=== PATIENT | male | born 1950 | race Hispanic/Latino ===

== ENCOUNTER 2018-06-30 13:24 | Inpatient (IN) | payer BC, MEDICARE ==
[~2018-06-30] VITALS: Ht 167.6 cm; Wt 70.8 kg
[2018-06-30] VITALS (24 sets, daily range): BP systolic 86–121; BP diastolic 51–85
[2018-06-30] MEDS ORDERED: MORPHINE SULFATE 5 MG/ML VIAL IV ONE (13:45)
[2018-06-30] MEDS ORDERED: ASPIRIN 81 MG ENTERIC COATED PO ONE (14:15)
[2018-06-30] MEDS ORDERED: HEPARIN SOD (PORCINE) 5,000 UNIT/ML VIAL IV ONE ×3 (14:15→19:00)
--- NOTE | 2018-06-30 14:17 | NUR ---
HEPARIN VERIFIED WITH DUNIA ELLIS
[2018-06-30 14:28] LABS: BASOPHILS % 0.1 % (0.0-1.0); HEMATOCRIT 43.3 % (38.2-49.6); HEMOGLOBIN 15.3 g/dL (14.0-18.0); LYMPHOCYTES # (AUTO) 0.8 (1.0-3.2); LYMPHOCYTES % 4.9 % (18.0-39.1); MEAN CORPUSCULAR HEMOGLOBIN 30.5 pg (28-32); MEAN CORPUSCULAR HGB CONC 35.3 g/dL (31-35); MEAN CORPUSCULAR VOLUME 86.3 fL (81-99); MONOCYTES # (AUTO) 1.1 (0.2-0.8); MONOCYTES % 6.9 % (4.4-11.3); NEUTROPHILS # (AUTO) 13.5 (2.1-6.9); NEUTROPHILS % 87.6 % (38.7-80.0); PLATELET COUNT 286 x10e3/uL (140-360); RED BLOOD COUNT 5.02 x10e6/uL (4.3-5.7); RED CELL DISTRIBUTION WIDTH 12.2 % (11.7-14.4)
[2018-06-30] MEDS ORDERED: HEPARIN SOD (PORCINE) 1000 UNIT/ML 30ML ONE (14:33)
[2018-06-30] MEDS ORDERED: NITROGLYCERIN 400 MCG/SPRAY 4.9 GM BTL ONE (14:33)
[2018-06-30] MEDS ORDERED: ATROPINE SULFATE 0.1 MG/ML 10ML SYR ONE ×2 (14:34→19:41)
[2018-06-30] MEDS ORDERED: IOPAMIDOL 370 MG/ML 200 ML INFUS..BTL INJ ONE ×2 (14:34→15:20)
[2018-06-30] MEDS ORDERED: LIDOCAINE HCL 1% LOCAL INJ 20 ML VIAL ONE (14:34)
[2018-06-30] MEDS ORDERED: HEPARIN SOD/SOD CHLORIDE 2,000 ML ONE (14:34)
[2018-06-30] MEDS ORDERED: SODIUM CHLORIDE 0.9% 1000ML 1,000 ML ONE ×2 (14:34→21:07)
[2018-06-30] MEDS ORDERED: BIVALRIUDIN 250 MG/VIAL VIAL IV ONE (14:35)
[2018-06-30] MEDS ORDERED: MIDAZOLAM HCL 2 MG/2 ML VIAL ONE ×2 (14:35→15:46)
[2018-06-30] MEDS ORDERED: SODIUM CHLORIDE 0.9% 50ML 0 ML ONE (14:36)
[2018-06-30] MEDS ORDERED: FENTANYL CITRATE/PF 100MCG/2 ML INJ ONE (14:36)
[2018-06-30 14:43] LABS: ALANINE AMINOTRANSFERASE 42 IU/L (0-55); ALBUMIN 3.9 g/dL (3.5-5.0); ALBUMIN/GLOBULIN RATIO 0.8 (0.8-2.0); ALKALINE PHOSPHATASE 115 IU/L (40-150); ANION GAP 25.2 mmol/L (8-16); BLOOD UREA NITROGEN 17 mg/dL (7-26); BUN/CREATININE RATIO 14 (6-25); CALCIUM 9.7 mg/dL (8.4-10.2); CARBON DIOXIDE 18 mmol/L (22-29); CHLORIDE 91 mmol/L (98-107); CREATININE, SERUM 1.18 mg/dL (0.72-1.25); EST GLOMERULAR FILTRATION RATE > 60 ML/MIN (60-); POTASSIUM 4.2 mmol/L (3.5-5.1); SODIUM 130 mmol/L (136-145)
--- NOTE | 2018-06-30 14:45 | NUR ---
REPORTED TO BRANDT ELLIS IN ENTRY LEVEL MECHANICAL ENGINEER THAT PATIENT GLUCOSE IS 421 AND PT/PTT NEEDS TO BE DRAWN
[2018-06-30 14:49] LABS: GLUCOSE 421 mg/dL (74-118)
--- NOTE | 2018-06-30 14:52 | Diagnostic Imaging Report ---
A single frontal view of the chest. HISTORY: Chest pain COMPARISON: None available. DISCUSSION: Portable technique, limits sensitivity of the exam. Overlying monitoring leads. Tubes/Lines: None Lungs and pleura: Mild left greater than right atelectasis. Trace blunting of the left costophrenic angle, pleural thickening versus trace pleural fluid. No evidence of a consolidative pneumonia or pulmonary alveolar edema. Heart and mediastinum: The cardiomediastinal silhouette appears unremarkable. Bones and soft tissues: Healed left clavicle fracture deformity. IMPRESSION: 1. Mild left greater than right atelectasis. 2. Trace left pleural effusion versus pleural thickening. Signed by: Dr. Suman Thomas D.O., M.M.M. on 06/30/2018 2:49 PM
[2018-06-30] MEDS ORDERED: ASPIRIN 325 MG TAB EC PO ONE (15:00)
[2018-06-30] MEDS ORDERED: HEPARIN SOD (PORCINE) 1000 UNIT/ML SDV IV ONE (15:00)
[2018-06-30] MEDS ORDERED: EPTIFIBATIDE 10 ML ONE (15:12)
[2018-06-30] MEDS ORDERED: EPTIFIBATIDE ONE (15:12)
[2018-06-30] MEDS ORDERED: SODIUM CHLORIDE 0.9% 500ML 0 ML ONE (15:29)
[2018-06-30] MEDS ORDERED: ADENOSINE 3MG/1ML 30ML VIAL ONE (15:33)
[2018-06-30] MEDS ORDERED: SODIUM CHLORIDE 0.9% 500ML 500 ML ONE (15:34)
[2018-06-30] MEDS ORDERED: SODIUM CHLORIDE 0.9% 250ML 250 ML ONE (15:35)
[2018-06-30] MEDS ORDERED: ADENOSINE 6MG/2ML 1 ML ONE (15:35)
[2018-06-30] MEDS ORDERED: SODIUM CHLORIDE 0.9% 1000ML 1,000 ML IV SCH ×2 (16:05→16:30)
[2018-06-30] MEDS ORDERED: HYDRALAZINE HCL 20 MG/ML VIAL IV PRN (16:15)
[2018-06-30] MEDS ORDERED: INSULIN DETEMIR 100 UNIT/ML PEN SQ PRN (16:15)
[2018-06-30] MEDS ORDERED: ZOLPIDEM TARTRATE 5 MG TAB PO PRN (16:15)
[2018-06-30] MEDS ORDERED: MAGNESIUM SULF 1GRAM/DEXTROSE 100 ML IV PRN (16:15)
[2018-06-30] MEDS ORDERED: NITROGLYCERIN 0.4 MG SUBL SL PRN (16:15)
[2018-06-30] MEDS ORDERED: ASPIRIN 81 MG CHEW TAB PO ONE (16:15)
[2018-06-30] MEDS ORDERED: POTASSIUM CHLORIDE 20MEQ/100ML 200 ML IV PRN (16:15)
[2018-06-30] MEDS ORDERED: TICAGRELOR 90 MG TABLET ONE (16:16)
--- NOTE | 2018-06-30 16:54 | History and Physical ---
HISTORY OF PRESENT ILLNESS: Mr. Guzmán is a 67-year-old gentleman who is not taking any medications, does not see a physician. He was seen in the freestanding emergency room of [facility] with chest pain for several hours' duration. His EKG shows inferior ST elevation. His troponin is 18.6. Blood sugars are 421 and an anion gap of 25. PAST MEDICAL HISTORY: As listed above. SOCIAL HISTORY: Patient does not smoke or drink. MEDICATIONS: Reviewed. ALLERGIES: NO KNOWN DRUG ALLERGIES. REVIEW OF SYSTEMS: Negative except as dictated in the history of present illness. PHYSICAL EXAMINATION VITAL SIGNS: Afebrile. Heart rate 74, blood pressure 149/69, O2 sat is 98%. CARDIOVASCULAR: Regular rhythm. S3 gallop. Systolic murmur. RESPIRATORY: Clear to auscultation bilaterally. ABDOMEN: Soft. EXTREMITIES: Pedal pulses are trace positive. Electrocardiogram shows sinus rhythm with inferior ST elevation. LABS: Reviewed and are described above. ASSESSMENT 1. Acute inferior ST elevation myocardial infarction. 2. Diabetic ketoacidosis. RECOMMENDATIONS: Urgent intervention and coronary angiography will be performed. This was discussed with the patient. He is agreeable for the same. He has already received aspirin and heparin for anticoagulation. Endocrinology consultation for diabetic ketoacidosis. Critical care, ICU, and close outpatient followup will be needed. Job#: [id number] TAO
[2018-06-30] MEDS ORDERED: METOPROLOL SUCCINATE 50 MG TAB XL PO ONE (17:00)
[2018-06-30] MEDS ORDERED: INSULIN REGULAR, HUMAN 3ML VL 100 UNIT in SODIUM CHLORIDE 0.9% 99 ML IV SCH ×4 (17:00→18:30)
[2018-06-30] MEDS: TICAGRELOR 90 MG TABLET PO SCH (17:00)
[2018-06-30] MEDS ORDERED: LISINOPRIL 10 MG TAB PO ONE (17:00)
[2018-06-30] MEDS ORDERED: EPTIFIBATIDE 2 MG/1 ML 10ML VIAL IV ONE (17:00)
--- OUTSIDE RECORDS SUMMARY | 2018-06-30 17:38 | XMS REPORT ---
Author Author [facility] Address Unknown Phone Unavailable Care Team Providers Care Vascular Surgeon Name Role Phone Jojo WILSON Unavailable Unavailable Problems This patient has no known problems. Allergies, Adverse Reactions, Alerts This patient has no known allergies or adverse reactions. Medications This patient has no known medications. Results Test Description Test Time Test Comments Text Results Atomic Results Result Comments CXR 1 [facility] 2018-06-30 14:46:00 [place] [address] Patient Name: DEEP MCLAUGHLIN MR #: [id number] : 1950 Age/Sex: 67/M Req #: [id number] Adm Physician: Ordered by: PRISCA WILSON MD Report #: [id number] Location: [facility] Room/Bed: Procedure: [id number] HOPD/CXR 1 [facility] Exam Date: 06/30/18 Exam Time: 1415 REPORT STATUS: Signed A single frontal view of the chest. HISTORY: Chest pain COMPARISON: None available. DISCUSSION: Portable technique, limits sensitivity of the exam. Overlying monitoring leads. Tubes/Lines: None Lungs and pleura: Mild left greater than right atelectasis. Trace blunting of the left costophrenic angle, pleural thickening versus trace pleural fluid. No evidence of a consolidative pneumonia or pulmonary alveolar edema. Heart and mediastinum: The cardiomediastinal silhouette appears unremarkable. Bones and soft tissues: Healed left clavicle fracture deformity. IMPRESSION: 1. Mild left greater than right atelectasis. 2. Trace left pleural effusion versus pleural thickening. Signed by: Dr. Saulo Thomas D.O., M.M.M. on 06/30/2018 2:49 PM Dictated By: SAULO THOMAS DO 1449 Transcribed By: AGUILA on 06/30/18 1449 COPY TO: PRISCA WILSON MD
[2018-06-30] MEDS ORDERED: DEXTROSE 50% SYRINGE 50 ML IV PRN (17:45)
[2018-06-30] MEDS ORDERED: HEPARIN 25,000U/0.45% NS 250ML 250 ML ONE (17:51)
--- NOTE | 2018-06-30 18:02 | Operative Report ---
DATE OF PROCEDURE: June 30, 2018 INDICATIONS: ST-elevation myocardial infarction. PROCEDURES PERFORMED 1. Left heart catheterization, selective coronary angiography. 2. Percutaneous transluminal coronary angioplasty and drug-eluting stent placement in the proximal and mid right coronary artery. 3. Deployment of right groin intra-aortic balloon pump. COMPLICATIONS: None. RECOMMENDATIONS: Counter pulsation is followed by medical therapy and staged intervention on the circumflex and obtuse marginal arteries. Access obtained in the right femoral artery. A 6-Burkinan sheath was placed. Diagnostic coronary angiogram revealed completely occluded right coronary artery with thrombus. After reperfusion, the right posterolateral distal right coronary artery and posterior descending artery had 70% to 80% bifurcating lesions, 1.5 mm vessel, left main 50%, left anterior descending artery 50%, circumflex and obtuse marginal branch bifurcating 95% stenosis. A decision was made to intervene on the right coronary artery. The patient received intravenous heparin, Integrilin, oral Brilinta as well as aspirin for anticoagulation. The right coronary artery was cannulated using a JR4 6-Burkinan guiding catheter. Short Runthrough wire was advanced across the lesion for support. Thrombectomy was performed pre-dilatation of 2.5 mm balloon following which 2 overlapping 3.5 x 38 and 3.5 x 18 mm Resolute Manas drug-eluting stents were deployed. Excellent end result. Adenosine and nitroglycerin copious amounts administered. Excellent flow JOHN-3. No complications. Intra-aortic balloon pump 34 mL was introduced. Counterpulsations initiated. Patient was transferred to ICU in stable condition. Job#: [id number] SHIN
[2018-06-30 18:27] LABS: INR 1.17; PROTHROMBIN TIME 15.9 seconds (11.9-14.5)
[2018-06-30 18:28] LABS: PARTIAL THROMBOPLASTIN TIME 56.6 seconds (23.8-35.5)
[2018-06-30 18:32] LABS: ANION GAP 22.2 mmol/L (8-16); BLOOD UREA NITROGEN 17 mg/dL (7-26); BUN/CREATININE RATIO 18 (6-25); CARBON DIOXIDE 19 mmol/L (22-29); CHLORIDE 94 mmol/L (98-107); CREATINE KINASE 148 IU/L (30-200); CREATININE, SERUM 0.97 mg/dL (0.72-1.25); EST GLOMERULAR FILTRATION RATE > 60 ML/MIN (60-); GLUCOSE 367 mg/dL (74-118); MAGNESIUM 2.3 MG/DL (1.3-2.1); POTASSIUM 4.2 mmol/L (3.5-5.1); SODIUM 131 mmol/L (136-145)
[2018-06-30] MEDS: DEXTROSE 5%/0.45% SOD CHL 1,000 ML IV SCH (18:59)
[2018-06-30] MEDS ORDERED: ATROPINE SULFATE 1 MG/ML VIAL IV ONE ×2 (20:30→21:30)
[2018-06-30] MEDS ORDERED: SODIUM CHLORIDE 0.9% 1000ML 1,000 ML IV ONE (21:00)
[2018-06-30] MEDS: ATORVASTATIN 40 MG TAB PO SCH (21:15)
[2018-06-30 21:24] LABS: ANION GAP 15.7 mmol/L (8-16); BLOOD UREA NITROGEN 18 mg/dL (7-26); BUN/CREATININE RATIO 20 (6-25); CALCIUM 8.2 mg/dL (8.4-10.2); CARBON DIOXIDE 20 mmol/L (22-29); CHLORIDE 95 mmol/L (98-107); CREATININE, SERUM 0.89 mg/dL (0.72-1.25); EST GLOMERULAR FILTRATION RATE > 60 ML/MIN (60-); MAGNESIUM 2.1 MG/DL (1.3-2.1); POTASSIUM 3.7 mmol/L (3.5-5.1); SODIUM 127 mmol/L (136-145)
[2018-06-30 21:25] LABS: GLUCOSE 483 mg/dL (74-118)
--- NOTE | 2018-06-30 21:25 | NUR ---
Dr. Ruby rounded at the bedside and updated on patient's status.
[2018-06-30] MEDS ORDERED: EPTIFIBATIDE 100 ML ONE (22:52)
[2018-06-30] MEDS: EPTIFIBATIDE 100 ML IV SCH (23:00)
[2018-06-30] MEDS: MORPHINE SULFATE INJ 4 MG/ML INJ IV PRN (23:30)
[2018-07-01] VITALS (93 sets, daily range): BP systolic 86–144; BP diastolic 52–91
[2018-07-01] MEDS: DEXTROSE 5%/0.45% SOD CHL 1,000 ML IV SCH ×2 (02:10→10:09)
[2018-07-01 04:51] LABS: BASOPHILS % 0.2 % (0.0-1.0); HEMOGLOBIN 12.2 g/dL (14.0-18.0); LYMPHOCYTES # (AUTO) 1.1 (1.0-3.2); LYMPHOCYTES % 8.8 % (18.0-39.1); MEAN CORPUSCULAR HEMOGLOBIN 31.3 pg (28-32); MEAN CORPUSCULAR VOLUME 84.6 fL (81-99); MONOCYTES # (AUTO) 1.2 (0.2-0.8); MONOCYTES % 9.9 % (4.4-11.3); NEUTROPHILS # (AUTO) 10.1 (2.1-6.9); NEUTROPHILS % 80.5 % (38.7-80.0); PLATELET COUNT 251 x10e3/uL (140-360); RED CELL DISTRIBUTION WIDTH 12.2 % (11.7-14.4)
[2018-07-01 05:09] LABS: ALANINE AMINOTRANSFERASE 29 IU/L (0-55); ALBUMIN 2.7 g/dL (3.5-5.0); ALBUMIN/GLOBULIN RATIO 0.8 (0.8-2.0); ALKALINE PHOSPHATASE 79 IU/L (40-150); ANION GAP 11.7 mmol/L (8-16); BLOOD UREA NITROGEN 27 mg/dL (7-26); BUN/CREATININE RATIO 33 (6-25); CALCIUM 8.4 mg/dL (8.4-10.2); CARBON DIOXIDE 23 mmol/L (22-29); CHLORIDE 98 mmol/L (98-107); CHOLESTEROL 107 MD/DL (0-199); CREATININE, SERUM 0.83 mg/dL (0.72-1.25); EST GLOMERULAR FILTRATION RATE > 60 ML/MIN (60-); GLUCOSE 152 mg/dL (74-118); HDL CHOLESTEROL 36 MG/DL (40-60); LDL CHOLESTEROL 64 MG/DL (60-130); POTASSIUM 3.7 mmol/L (3.5-5.1); SODIUM 129 mmol/L (136-145); TRIGLYCERIDES 34 MG/DL (0-149)
[2018-07-01] MEDS: MORPHINE SULFATE INJ 4 MG/ML INJ IV PRN ×4 (05:15→20:40)
[2018-07-01 05:30] LABS: MAGNESIUM 2.3 MG/DL (1.3-2.1)
[2018-07-01 05:37] LABS: CREATINE KINASE MB 6.2 ng/mL (0-5.0)
[2018-07-01] MEDS: EPTIFIBATIDE 100 ML IV SCH ×2 (06:55→14:33)
--- NOTE | 2018-07-01 07:20 | NUR ---
radial and DP pulses palpable. extremities cool to touch and normal in color. no bleeding, no hematoma to right groin IABP site. tubing free of kinks and arterial line calibrated
[2018-07-01] MEDS: LISINOPRIL 10 MG TAB PO SCH (08:13)
[2018-07-01] MEDS: METOPROLOL SUCCINATE 50 MG TAB XL PO SCH (08:13)
[2018-07-01] MEDS: TICAGRELOR 90 MG TABLET PO SCH ×2 (08:13→17:00)
[2018-07-01] MEDS: HYDROCODONE/APAP 5MG-325MG TAB PO PRN ×2 (08:13→17:00)
[2018-07-01] MEDS ORDERED: SODIUM CHLORIDE 0.9% 1000ML 1,000 ML ONE ×2 (10:08→23:27)
--- NOTE | 2018-07-01 11:02 | NUR ---
radial and DP pulses palpable. extremities cool to touch and normal in color. no bleeding, no hematoma to right groin IABP site. no changes from previous assessment.
[2018-07-01 12:35] LABS: ANION GAP 11.6 mmol/L (8-16); BLOOD UREA NITROGEN 28 mg/dL (7-26); BUN/CREATININE RATIO 39 (6-25); CALCIUM 8.2 mg/dL (8.4-10.2); CARBON DIOXIDE 23 mmol/L (22-29); CHLORIDE 97 mmol/L (98-107); CREATININE, SERUM 0.71 mg/dL (0.72-1.25); EST GLOMERULAR FILTRATION RATE > 60 ML/MIN (60-); GLUCOSE 125 mg/dL (74-118); MAGNESIUM 2.3 MG/DL (1.3-2.1); POTASSIUM 3.6 mmol/L (3.5-5.1); SODIUM 128 mmol/L (136-145)
[2018-07-01 12:43] LABS: CREATINE KINASE MB 7.7 ng/mL (0-5.0)
--- NOTE | 2018-07-01 14:15 | Consultation ---
DATE OF CONSULTATION: June 30, 2018 ENDOCRINE CONSULTATION This is a patient of Dr. Ruby. Thank you very much for referring this patient. HISTORY OF PRESENT ILLNESS: This is a 67-year-old gentleman who is referred to me for evaluation of new onset hyperglycemia and diabetic ketoacidosis. Patient came to the emergency room with a history of chest pain, and EKG showed myocardial infarction. At the time of admission, his blood sugar was 421 and the anion gap was around 25. Patient has been complaining of dry mouth, polyuria, polydipsia and weight loss. During this hospital stay, the patient was found to have an IN. He underwent angioplasty and a stent placement and the RCA. He does have family history of diabetes mellitus. PHYSICAL EXAMINATION: GENERAL: Today the patient is alert, awake, a little bit apprehensive. VITAL SIGNS: His heart rate is around 100. Blood pressure is 130/80 mmHg. HEENT: Examination essentially unremarkable. Thyroid is palpable. Clinically he is near euthyroid. CHEST: Bilateral vesicular breathing. He has mild bronchospasm. CARDIAC: Both 1st and 2nd heart sounds. There is no 3rd or 4th heart sound. Ejection sound grade 2/6. EXTREMITIES: Patient has evidence of diabetic sensory neuropathy in both lower extremities. CLINICAL IMPRESSION: 1. Diabetes mellitus type 2, new onset. 2. Diabetic ketoacidosis. 3. Chest pain. 4. Coronary artery disease. 5. Myocardial infarction. 6. Status post stent placement in the right coronary artery. The plan at this time is to do insulin drip. Monitor his blood sugars closely and adjust the insulin dose. Will also do a hemoglobin A1c and thyroid function test. Thanks for referring this patient. I will be following this patient with you. Job#: [id number] EV
[2018-07-01 14:22] LABS: FREE T4 (FREE THYROXINE) 1.22 ng/dL (0.9-1.8); THYROID STIMULATING HORMONE 0.347 uIU/mL (0.350-4.940)
--- NOTE | 2018-07-01 15:20 | NUR ---
patient with shortness of breath. added O2 per nasal canula and medicated with morphine
[2018-07-01] MEDS ORDERED: INSULIN LISPRO 100 UNIT/1 ML 3ML VIAL SQ SCH (16:30)
--- NOTE | 2018-07-01 17:00 | NUR ---
patient complains of feeling bloated. abdomen soft and non tender and distended. paged Dr Ruby. Dr Ruano returned call and new orders given. Addendum: 07/01/18 at 1749 by Radha Buck RN radial and DP pulses palpable. extremities cool to touch and normal in color. no bleeding, no hematoma to right groin IABP site. no changes from previous assessment.
[2018-07-01] MEDS: FAMOTIDINE 20 MG/2 ML VIAL IV SCH (17:17)
[2018-07-01] MEDS: ONDANSETRON HCL INJ 2 MG/ML VIAL IV PRN (17:17)
[2018-07-01] MEDS: SIMETHICONE 80 MG CHEW PO PRN (17:17)
[2018-07-01] MEDS: ATORVASTATIN 40 MG TAB PO SCH (20:40)
[2018-07-01] MEDS ORDERED: INSULIN DETEMIR 100 UNIT/ML PEN SQ PRN (21:00)
[2018-07-01] MEDS ORDERED: INSULIN DETEMIR 100 UNIT/ML PEN SQ SCH (21:00)
--- NOTE | 2018-07-01 21:05 | NUR ---
Upon arrival for shift patient had to be cleaned because he had urinated on himself. He was complaining that the condom catheter was uncomfortable and kept coming off. Day shift nurse explained to him that we could put an indwelling catheter in if he preferred. Patient stated that would be better. Order obtained for catheter. Schneider catheter was inserted at 1934 to assist patient with voiding per his request. At 2039 patient was complaining that the catheter "hurt and burned too much" and wanted it taken out. Patient began getting agitated, yelling and attempting to sit up. Schneider catheter was taken out at 2044 and new condom catheter was reapplied. RN instructed patient that it is unsafe for him to sit up or move around a lot with the balloon pump in place. Patient verbalized understanding.
--- NOTE | 2018-07-01 21:29 | Diagnostic Imaging Report ---
EXAM: ABDOMEN-1VIEW (KUB) DATE: 07/01/2018 5:36 PM INDICATION: Rule out ileus COMPARISON: None FINDINGS: Limited evaluation secondary to motion artifacts. LINES/TUBES: Right femoral catheter overlying the right pelvis. BOWEL PATTERN: Colonic distention measuring up to approximately 7.6 cm in the transverse colon. SOFT TISSUES: No abnormal calcifications. No mass effect. LUNG BASES: Not included BONES: No acute findings. IMPRESSION: Limited evaluation secondary to motion. Within the limitations, colonic distention likely reflecting ileus. Signed by: DR. Neo Vann MD on 07/01/2018 9:25 PM
[2018-07-01] MEDS ORDERED: HEPARIN 25,000U/0.45% NS 250ML 250 ML ONE (22:09)
--- NOTE | 2018-07-01 23:53 | Progress Note ---
DATE: July 01, 2018 CARDIOLOGY PROGRESS NOTE SUBJECTIVE: No major events overnight. Complains about abdominal distention and discomfort. OBJECTIVE: VITAL SIGNS: Temperature afebrile, pulse 95, respiratory rate 18, blood pressure 126/87, satting 96% on 2 liters nasal cannula. GENERAL: Well developed, well nourished, in no acute distress. CARDIOVASCULAR: Regular rate and rhythm. No murmurs, rubs, or gallops. LUNGS: Clear to auscultation bilaterally. ABDOMEN: Soft, nontender. NEURO AND PSYCH: Alert and oriented to person, place, and time. Normal affect. CARDIOVASCULAR MEDICATIONS: Reviewed. Echocardiogram reviewed today shows RCA territory hypokinesis of the left ventricle and right ventricular dysfunction with moderate hypokinesis of the RV. LABORATORY DATA: Reviewed. ASSESSMENT AND PLAN: 1. Acute inferior ST-elevation myocardial infarction. 2. Diabetic ketoacidosis. RECOMMENDATION: Patient is status post urgent revascularization and coronary angiography. Continues to require balloon pump support and low dose of dopamine. Given RV dysfunction, there maybe several days before his blood pressure improves and cardiac output picks up. Continue dual antiplatelet therapy. Will plan to remove balloon pump tomorrow if patient is hemodynamically stable. Thank you for this consult. Will continue to follow. Job#: [id number]
[2018-07-02] VITALS (71 sets, daily range): BP systolic 89–163; BP diastolic 49–99
[2018-07-02 04:45] LABS: BASOPHILS % 0.2 % (0.0-1.0); EOSINOPHILS % 0.3 % (0.0-6.0); HEMATOCRIT 35.5 % (38.2-49.6); LYMPHOCYTES % 8.7 % (18.0-39.1); MEAN CORPUSCULAR HEMOGLOBIN 29.3 pg (28-32); MEAN CORPUSCULAR HGB CONC 33.8 g/dL (31-35); MEAN CORPUSCULAR VOLUME 86.8 fL (81-99); MONOCYTES % 8.6 % (4.4-11.3); NEUTROPHILS # (AUTO) 9.4 (2.1-6.9); NEUTROPHILS % 81.5 % (38.7-80.0); PLATELET COUNT 243 x10e3/uL (140-360); RED BLOOD COUNT 4.09 x10e6/uL (4.3-5.7); RED CELL DISTRIBUTION WIDTH 12.2 % (11.7-14.4)
[2018-07-02 05:08] LABS: ANION GAP 13.3 mmol/L (8-16); BLOOD UREA NITROGEN 20 mg/dL (7-26); BUN/CREATININE RATIO 35 (6-25); CALCIUM 7.9 mg/dL (8.4-10.2); CARBON DIOXIDE 20 mmol/L (22-29); CHLORIDE 101 mmol/L (98-107); CREATININE, SERUM 0.57 mg/dL (0.72-1.25); EST GLOMERULAR FILTRATION RATE > 60 ML/MIN (60-); GLUCOSE 72 mg/dL (74-118); MAGNESIUM 2.2 MG/DL (1.3-2.1); POTASSIUM 3.3 mmol/L (3.5-5.1); SODIUM 131 mmol/L (136-145)
[2018-07-02] MEDS: FAMOTIDINE 20 MG/2 ML VIAL IV SCH ×2 (05:20→17:14)
--- NOTE | 2018-07-02 06:20 | NUR ---
Spoke to Dr. Eaton regarding patient's KUB results. Order obtained to consult Dr. Trupti Perez. Dr. Perez's answering service was paged at [phone] and will inform him of new consult.
[2018-07-02 07:40] LABS: ALBUMIN 2.6 g/dL (3.5-5.0); BILIRUBIN,DIRECT 0.4 mg/dL (0.0-0.5)
--- NOTE | 2018-07-02 08:00 | NUR ---
radial and DP pulses palpable. extremities cool to touch and normal in color. no bleeding, no hematoma to right groin IABP site. tubing free of kinks and arterial line calibrated. patient using urinal for voiding with no problem
[2018-07-02] MEDS: LISINOPRIL 10 MG TAB PO SCH (08:27)
[2018-07-02] MEDS: TICAGRELOR 90 MG TABLET PO SCH ×2 (08:27→16:31)
[2018-07-02] MEDS: METOPROLOL SUCCINATE 50 MG TAB XL PO SCH (08:28)
--- NOTE | 2018-07-02 10:03 | NUR ---
no changes from previous assessment with radial and DP pulses palpable. extremities cool to touch and normal in color. no bleeding, no hematoma to right groin IABP site. tubing free of kinks with right leg kept straight
--- NOTE | 2018-07-02 11:00 | Diagnostic Imaging Report ---
EXAM: Right upper quadrant abdominal ultrasound INDICATION: Right upper quadrant pain COMPARISON: KUB 07/01/2018. TECHNIQUE: Transverse and longitudinal images of the right upper quadrant abdomen were obtained FINDINGS: Liver: Size: 17.5 cm in the right midclavicular line Appearance: Increased echogenicity, smooth contour Mass: No focal masses Gallbladder: Gallbladder sludge. No evidence of distention, pericholecystic fluid, wall thickening, stone, or reported sonographic Broussard's sign. Gallbladder wall measures 0.3 cm. Bile Ducts: Intrahepatic Ducts: No dilatation Extrahepatic Ducts: Common bile duct measures 0.6 cm, no dilatation Pancreas: The pancreas is not well seen due to overlying bowel gas. Kidney: The right kidney measures 11.1 cm without evidence of hydronephrosis or stone. Vessels: Aorta: Not well seen due to overlying bowel gas. Inferior Vena Cava: Visualized portions are normal Main Portal Vein: 1.0 cm, normal size with hepatopetal flow. Free Fluid: No evidence of ascites. IMPRESSION: Hepatomegaly and hepatic steatosis. Gallbladder sludge without sonographic evidence of cholelithiasis or cholecystitis. Signed by: Dr. Trace Koo MD on 07/02/2018 10:56 AM
[2018-07-02] MEDS: INSULIN LISPRO 100 UNIT/1 ML 3ML VIAL SQ SCH ×2 (15:34→21:15)
--- NOTE | 2018-07-02 15:43 | NUR ---
Ukrainian Folk Arts Instructor to bedside to discuss plan of care with patient/family. CM/SW role and care transitions discussed. Anticipated discharge plan discussed along with duration of care. CM/SW discussed patients right to make decisions in care. CM/SW work hours given. Patient lives: alone Admit/Transfer: thru ED POA/Emergency contact: mo Guzmán [phone] Current/Previous Home Health: none PCP/Follow-up Care: does not have PCP. Pt states he will follow up with Dr. Ruby's group after discharge. Current/Previous DME: [employer] Other Services: none Employment Status: employed Areas of Concerns: none Referral Needs: none Education Needs: medical management IMM/CARRASCO given and signed (if applicable): none at this time Goal for discharge: home, daughter will provide transportation. CM/SW left business card at the bedside with contact information. Name and number was also written on the patients whiteboard. Patient verbalized understanding of discussion. CM will follow-up with ongoing discharge and transition of care needs.
--- NOTE | 2018-07-02 15:45 | NUR ---
Heparin gtt discontinued per Dr Leggett. Will check ACT in 2 hrs and assess for removal of IABP at that time
[2018-07-02] MEDS ORDERED: POTASSIUM CHLORIDE 20 MEQ TAB CR PO NR (16:00)
[2018-07-02] MEDS: ONDANSETRON HCL INJ 2 MG/ML VIAL IV PRN (16:31)
[2018-07-02] MEDS: HYDROCODONE/APAP 5MG-325MG TAB PO PRN (16:31)
--- NOTE | 2018-07-02 18:00 | NUR ---
ACT FROM RIGHT GROIN IABP SITE DRAWN AND RESULTED AT 148. NOTIFIED DR eNeru LOPEZ AND WILL DISCONTINUE IABP ABOUT 1900
--- NOTE | 2018-07-02 19:00 | NUR ---
RECEIVED SUPINE IN BED, BALLOON PUMP IN USE, PEDAL PULSES PALPABLE BILATERALLY, BOTH FEET WARM TO TOUCH
--- NOTE | 2018-07-02 20:02 | NUR ---
BALLOON PUMP REMOVED BY DR Ignacio LOPEZ
--- NOTE | 2018-07-02 20:18 | Progress Note ---
DATE: July 02, 2018 CARDIOLOGY PROGRESS NOTE SUBJECTIVE: Feels much better today. No more abdominal bloating. No chest pain. No shortness of breath. Off dopamine. OBJECTIVE: VITAL SIGNS: Temperature afebrile, pulse 89, respiratory rate 24, blood pressure 126/71, satting 98% on 2 liters nasal cannula. GENERAL: Middle-aged man, in no acute distress. CARDIOVASCULAR: Regular rate and rhythm. No murmurs, rubs, or gallops. Palpable carotid pulses. Palpable radial pulses. Balloon pump in place in right groin. No signs of hematoma. Well-perfused right lower extremity distally. LUNGS: Clear to auscultation bilaterally. ABDOMEN: Soft, nontender, nondistended today. NEURO AND PSYCH: Alert and oriented to person, place, and time. Normal affect. CARDIOVASCULAR MEDICATIONS: Reviewed. LABORATORY DATA: Reviewed. IMAGING DATA: Reviewed. TELEMETRY DATA: Reviewed, shows normal sinus rhythm. ASSESSMENT AND PLAN: 1. Acute inferior ST-elevation myocardial infarction. 2. Right ventricular infarction. 3. Cardiogenic shock requiring intra-aortic balloon pump placement. 4. Diabetic ketoacidosis. 5. Ischemic cardiomyopathy, ejection fraction 40%. RECOMMENDATIONS: Continue dual antiplatelet therapy. Will plan to remove balloon pump later today as patient is now hemodynamically more stable. Continue other cardiovascular medications otherwise. Thank you for this consult. Will continue to follow. Job#: [id number]
--- NOTE | 2018-07-02 20:35 | NUR ---
MANUAL PRESSURE HELD TO RIGHT GROIN BALLOON PUMP INSERTION SITE X 30 MINUTES, HEMOSTASIS NOTED, PRESSURE DRESSING APPLIED. PATIENT INSTRUCTED TO REMAIN FLAT IN BED WITH LEG STRAIGHT X 6 HOURS UNTIL 0200
[2018-07-02] MEDS ORDERED: INSULIN DETEMIR 100 UNIT/ML PEN SQ SCH (21:00)
[2018-07-02] MEDS: ATORVASTATIN 40 MG TAB PO SCH (21:15)
--- NOTE | 2018-07-02 21:15 | NUR ---
DRESSING TO RIGHT GROIN REMAINS C/D/I, NO HEMATOMA AT SITE
--- NOTE | 2018-07-02 22:17 | NUR ---
PATIENT SPILLED URINAL IN BED, CHITRA CARE GIVEN AND UNDER PADS CHANGED. RIGHT GROIN DRESSING REMAINS C/D/I, NO HEMATOMA AT SITE. PEDAL PULSES REMAIN PALPABLE BILATERALLY
[2018-07-03] VITALS (17 sets, daily range): BP systolic 100–136; BP diastolic 62–86
[2018-07-03 04:53] LABS: BASOPHILS % 0.2 % (0.0-1.0); EOSINOPHILS # (AUTO) 0.1 (0.0-0.4); EOSINOPHILS % 0.6 % (0.0-6.0); HEMATOCRIT 34.7 % (38.2-49.6); HEMOGLOBIN 11.9 g/dL (14.0-18.0); LYMPHOCYTES # (AUTO) 1.2 (1.0-3.2); LYMPHOCYTES % 13.7 % (18.0-39.1); MEAN CORPUSCULAR HEMOGLOBIN 29.9 pg (28-32); MEAN CORPUSCULAR HGB CONC 34.3 g/dL (31-35); MEAN CORPUSCULAR VOLUME 87.2 fL (81-99); MONOCYTES % 11.1 % (4.4-11.3); NEUTROPHILS # (AUTO) 6.6 (2.1-6.9); NEUTROPHILS % 73.8 % (38.7-80.0); PLATELET COUNT 253 x10e3/uL (140-360); RED BLOOD COUNT 3.98 x10e6/uL (4.3-5.7); RED CELL DISTRIBUTION WIDTH 12.2 % (11.7-14.4)
[2018-07-03 05:11] LABS: ANION GAP 10.8 mmol/L (8-16); BLOOD UREA NITROGEN 17 mg/dL (7-26); BUN/CREATININE RATIO 25 (6-25); CARBON DIOXIDE 25 mmol/L (22-29); CHLORIDE 100 mmol/L (98-107); CREATININE, SERUM 0.67 mg/dL (0.72-1.25); EST GLOMERULAR FILTRATION RATE > 60 ML/MIN (60-); GLUCOSE 69 mg/dL (74-118); POTASSIUM 3.8 mmol/L (3.5-5.1); SODIUM 132 mmol/L (136-145)
[2018-07-03] MEDS: FAMOTIDINE 20 MG/2 ML VIAL IV SCH ×2 (06:26→18:00)
[2018-07-03] MEDS: INSULIN LISPRO 100 UNIT/1 ML 3ML VIAL SQ SCH ×4 (07:30→21:00)
[2018-07-03] MEDS: METOPROLOL SUCCINATE 50 MG TAB XL PO SCH (09:50)
[2018-07-03] MEDS: LISINOPRIL 10 MG TAB PO SCH (09:50)
[2018-07-03] MEDS: TICAGRELOR 90 MG TABLET PO SCH ×2 (09:50→17:00)
--- NOTE | 2018-07-03 18:33 | Progress Note ---
DATE: July 03, 2018 CARDIOLOGY PROGRESS NOTE SUBJECTIVE: No major events overnight. Had the balloon pump removed yesterday. OBJECTIVE VITAL SIGNS: Temperature 99.2, pulse 88, respiratory rate 18, blood pressure 120/78, satting 95% on room air. GENERAL: man in no acute distress. CARDIOVASCULAR: Regular rate and rhythm. No murmurs, rubs or gallops. LUNGS: Clear to auscultation bilaterally. ABDOMEN: Soft, nontender, nondistended. NEURO AND PSYCH: Alert and oriented to person, place and time. Normal affect. CARDIOVASCULAR MEDICATIONS: Reviewed. LABORATORY DATA: Reviewed. IMAGING DATA: Reviewed. TELEMETRY DATA: Reviewed. Shows normal sinus rhythm. ASSESSMENT AND PLAN 1. Acute inferior ST-elevation myocardial infarction. 2. Right ventricular infarction. 3. Cardiogenic shock requiring intra-aortic balloon pump placement, now improved. 4. Diabetic ketoacidosis, now improved. 5. Ischemic cardiomyopathy, ejection fraction of 40%. RECOMMENDATIONS: Continue dual antiplatelet therapy with aspirin and ticagrelor. Balloon pump is now out. Transfer out of the ICU tomorrow. Continue optimum medical therapy. Discharge likely Sunday. Patient will follow up in clinic for staged intervention to his left-sided disease as an outpatient. Thank you for this consult. Will continue to follow. Job#: [id number] JANET
--- NOTE | 2018-07-03 19:00 | NUR ---
Bedside report received from Ann-Marie ELLIS. Pt received resting in bed, AAOx3, no signs of distress noted. Pt reports mild discomfort to abdomen, gas present, refer to pain assessment as needed. Room assigned per our director Amos ELLIS, in teletracker as room 200.
--- NOTE | 2018-07-03 19:15 | NUR ---
Attempted to call report to Sarah ELLIS on med-surg floor 2 but was told she is still in report and that she will call me back. (Assigned room 200).
--- NOTE | 2018-07-03 19:40 | NUR ---
Report called to Sarah ELLIS. Pt transferred to room 200. No signs of distress noted. Pts daughter present with him during transfer.
[2018-07-03] MEDS: SIMETHICONE 80 MG CHEW PO PRN (19:49)
--- NOTE | 2018-07-03 20:15 | NUR ---
PATIENT RECEIVED FROM ICU. PATIENT IS AAOX3. RESP EVEN AND UNLABORED. NO ACUTE DISTRESS NOTED. TELE IN PLACE. PATIENT DENIES OF ANY PAIN OR DISCOMFORT. FAMILY AT BED SIDE. CALL LIGHT WITHIN REACH. INSTRUCT TO CALL FOR ASSISTANCE. BED LOW/LOCKED. CONTINUE TO MONITOR CLOSELY
[2018-07-03] MEDS ORDERED: INSULIN DETEMIR 100 UNIT/ML PEN SQ SCH (21:00)
[2018-07-03] MEDS: ATORVASTATIN 40 MG TAB PO SCH (21:37)
[2018-07-04] VITALS (8 sets, daily range): BP systolic 102–122; BP diastolic 61–70
[2018-07-04] MEDS: ACETAMINOPHEN 325 MG TAB PO PRN ×2 (03:00→23:33)
[2018-07-04 04:54] LABS: BASOPHILS % 0.1 % (0.0-1.0); EOSINOPHILS % 0.3 % (0.0-6.0); HEMATOCRIT 36.3 % (38.2-49.6); HEMOGLOBIN 12.4 g/dL (14.0-18.0); LYMPHOCYTES # (AUTO) 1.1 (1.0-3.2); LYMPHOCYTES % 7.7 % (18.0-39.1); MEAN CORPUSCULAR HEMOGLOBIN 29.2 pg (28-32); MEAN CORPUSCULAR HGB CONC 34.2 g/dL (31-35); MEAN CORPUSCULAR VOLUME 85.6 fL (81-99); MONOCYTES # (AUTO) 1.5 (0.2-0.8); MONOCYTES % 10.3 % (4.4-11.3); NEUTROPHILS # (AUTO) 11.8 (2.1-6.9); PLATELET COUNT 309 x10e3/uL (140-360); RED BLOOD COUNT 4.24 x10e6/uL (4.3-5.7); RED CELL DISTRIBUTION WIDTH 12.1 % (11.7-14.4)
[2018-07-04 05:18] LABS: ANION GAP 13.4 mmol/L (8-16); BLOOD UREA NITROGEN 12 mg/dL (7-26); BUN/CREATININE RATIO 19 (6-25); CALCIUM 8.2 mg/dL (8.4-10.2); CARBON DIOXIDE 24 mmol/L (22-29); CHLORIDE 102 mmol/L (98-107); CREATININE, SERUM 0.64 mg/dL (0.72-1.25); EST GLOMERULAR FILTRATION RATE > 60 ML/MIN (60-); GLUCOSE 123 mg/dL (74-118); POTASSIUM 3.4 mmol/L (3.5-5.1); SODIUM 136 mmol/L (136-145)
[2018-07-04] MEDS: FAMOTIDINE 20 MG/2 ML VIAL IV SCH ×3 (06:00→17:29)
--- NOTE | 2018-07-04 06:45 | NUR ---
ATTEMPTED TO START IV 3 TIMES. THERE'S NO SUCCESS. REPORT TO UP COMING NURSE
[2018-07-04] MEDS: INSULIN LISPRO 100 UNIT/1 ML 3ML VIAL SQ SCH ×4 (07:30→20:59)
[2018-07-04] MEDS: METOPROLOL SUCCINATE 50 MG TAB XL PO SCH (09:34)
[2018-07-04] MEDS: TICAGRELOR 90 MG TABLET PO SCH ×2 (09:34→17:29)
[2018-07-04] MEDS: LISINOPRIL 10 MG TAB PO SCH (09:34)
--- NOTE | 2018-07-04 16:08 | NUR ---
CM SPOKE TO NURSE IN ROUNDS REGARDING PLAN OF CARE AND DISCHARGE PLANNING. RN SPOKE WITH MD AND PROJECTED DISCHARGE IS 07/05. PATIENT TO DISCHARGE HOME WITH NO NEEDS. CM TO FOLLOW UP TOMORROW.
--- NOTE | 2018-07-04 19:20 | NUR ---
PATIENT RECEIVED. PATIENT IS AAOX3. RESP EVEN AND UNLABORED. NO ACUTE DISTRESS NOTED. TELE IN PLACE. PATIENT DENIES OF ANY PAIN OR DISCOMFORT. FAMILY AT BED SIDE. CALL LIGHT WITHIN REACH. INSTRUCT TO CALL FOR ASSISTANCE. BED LOW/LOCKED. CONTINUE TO MONITOR CLOSELY
--- NOTE | 2018-07-04 19:44 | NUR ---
PT IN BED RESTING COMFORTABLE, NO DISTRESS NOTED AND DENIES PAIN OR DISCOMFORT.
--- NOTE | 2018-07-04 19:52 | Progress Note ---
DATE: July 04, 2018 CARDIOLOGY PROGRESS NOTE SUBJECTIVE: No major events overnight. Patient feels well, walking in the hallway. OBJECTIVE: VITAL SIGNS: Temperature 99.3, pulse 82, respiratory rate 18, blood pressure 115/66, satting 95% on room air. GENERAL: Well developed, well nourished, in no acute distress. CARDIOVASCULAR: Regular rate and rhythm. No murmurs, rubs, or gallops. LUNGS: Clear to auscultation bilaterally. ABDOMEN: Soft, nontender, nondistended. NEURO AND PSYCH: Alert and oriented to person, place, and time. Normal affect. INPATIENT MEDICATIONS: Reviewed. LABORATORY DATA: Reviewed. IMAGING DATA: Reviewed. TELEMETRY DATA: Reviewed, shows normal sinus rhythm. ASSESSMENT AND PLAN: 1. Acute inferior ST-elevation myocardial infarction. 2. Right ventricular infarction. 3. Cardiogenic shock, requiring intra-aortic balloon pump placement, now improved. 4. Diabetic ketoacidosis, now improved. 5. Ischemic cardiomyopathy, ejection fraction of 40%. RECOMMENDATIONS: Continue dual antiplatelet therapy with aspirin and ticagrelor. Balloon pump is now out. Patient is on the floor doing well, out of the ICU. Continue medications for his CHF. Doing well from cardiovascular standpoint. White count was a little elevated today. Will continue to monitor for any signs of infection. Had some diarrhea. Thank you for this consult. Will continue to follow. Job#: [id number]
[2018-07-04] MEDS ORDERED: INSULIN DETEMIR 100 UNIT/ML PEN SQ SCH (21:00)
[2018-07-04] MEDS: ATORVASTATIN 40 MG TAB PO SCH (21:35)
[2018-07-05] VITALS: BP 97/59
[2018-07-05 04:00] VITALS: BP 105/55
[2018-07-05 04:55] LABS: BASOPHILS % 0.3 % (0.0-1.0); EOSINOPHILS # (AUTO) 0.3 (0.0-0.4); EOSINOPHILS % 1.9 % (0.0-6.0); HEMATOCRIT 32.9 % (38.2-49.6); HEMOGLOBIN 11.7 g/dL (14.0-18.0); LYMPHOCYTES # (AUTO) 1.9 (1.0-3.2); LYMPHOCYTES % 14.3 % (18.0-39.1); MEAN CORPUSCULAR HEMOGLOBIN 30.2 pg (28-32); MEAN CORPUSCULAR HGB CONC 35.6 g/dL (31-35); MONOCYTES # (AUTO) 1.3 (0.2-0.8); MONOCYTES % 9.9 % (4.4-11.3); NEUTROPHILS # (AUTO) 9.5 (2.1-6.9); NEUTROPHILS % 72.8 % (38.7-80.0); PLATELET COUNT 351 x10e3/uL (140-360); RED BLOOD COUNT 3.87 x10e6/uL (4.3-5.7); RED CELL DISTRIBUTION WIDTH 12.1 % (11.7-14.4)
[2018-07-05 05:11] LABS: ANION GAP 11.2 mmol/L (8-16); BLOOD UREA NITROGEN 12 mg/dL (7-26); BUN/CREATININE RATIO 18 (6-25); CALCIUM 8.1 mg/dL (8.4-10.2); CARBON DIOXIDE 25 mmol/L (22-29); CHLORIDE 106 mmol/L (98-107); CREATININE, SERUM 0.68 mg/dL (0.72-1.25); EST GLOMERULAR FILTRATION RATE > 60 ML/MIN (60-); GLUCOSE 92 mg/dL (74-118); POTASSIUM 3.2 mmol/L (3.5-5.1); SODIUM 139 mmol/L (136-145)
[2018-07-05] MEDS: FAMOTIDINE 20 MG/2 ML VIAL IV SCH ×2 (06:20→17:21)
[2018-07-05 07:30] VITALS: BP 138/68
[2018-07-05] MEDS: INSULIN LISPRO 100 UNIT/1 ML 3ML VIAL SQ SCH ×3 (07:30→18:06)
[2018-07-05] MEDS: TICAGRELOR 90 MG TABLET PO SCH (08:46)
[2018-07-05] MEDS: METOPROLOL SUCCINATE 50 MG TAB XL PO SCH (08:46)
[2018-07-05] MEDS: LISINOPRIL 10 MG TAB PO SCH (08:46)
[2018-07-05 09:01] VITALS: BP 138/68
[2018-07-05 12:00] VITALS: BP 94/58
--- NOTE | 2018-07-05 12:25 | NUR ---
CM SPOKE WITH PATIENT USING LANGUAGE LINE. CODE:[id number]. CM SPOKE TO PATIENT AT BEDSIDE REGARDING IMM LETTER. IMM LETTER GIVEN WITH EXPLANATION. ORIGINAL SIGNED AND PLACED IN CHART; COPY OF ORIGINAL DOCUMENT GIVEN TO PATIENT AT BEDSIDE AND PLACED IN CARE TRANSITION FOLDER. CM CONTACT INFORMATION GIVEN TO PATIENT FOR ANY NEEDS OR CONCERNS. PATIENT WITH NO FURTHER QUESTIONS.
[2018-07-05] MEDS ORDERED: ASPIRIN 81 MG CHEW TAB PO SCH (15:45)
[2018-07-05] MEDS ORDERED: TICAGRELOR 90 MG TABLET PO SCH ×2 (15:45→15:48)
--- NOTE | 2018-07-05 16:01 | NUR ---
Nutrition Screen Note RD Recommendation for Physician: -Continue cardiac/ ADA diet as ordered Plan of Care: RD following, monitoring for tolerance and adequacy Nutrition reason for involvement: LOS Primary Diagnose(s): 1. Acute inferior ST-elevation myocardial infarction. 2. Right ventricular infarction. 3. Cardiogenic shock, requiring intra-aortic balloon pump placement, now improved. 4. Diabetic ketoacidosis, now improved. 5. Ischemic cardiomyopathy, ejection fraction of 40%. PMH: No PMHx noted in chart Ht: 66in Wt: 156lb BMI: 25.2kg/m2 IBW: 142lb RD Assessment: (07/05) Chart reviewed. Labs and meds reviewed. 67yo M, who is admitted for chest pain. 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 Pt denied chewing/swallowing problems and nausea/vomiting. RN recorded 75-100% meal intake. LBM 07/05, normal per pt. Will cont to monitor. Please consult as needed. Current Diet: cardiac/ ADA Malnutrition Evaluation (07/05/18) The patient does not meet criteria for a specified degree of malnutrition at this time. Will re-evaluate at follow-up as appropriate. Diet Education Needs Assessment: Diet education not indicated. Nutrition Care Level: low Signed: Kristin Figueredo, MS, RD, LD
--- NOTE | 2018-07-05 16:09 | Progress Note ---
DATE: July 05, 2018 CARDIOLOGY PROGRESS NOTE SUBJECTIVE: No major events overnight. Had several bouts of diarrhea yesterday. Feels a little better today. No abdominal pain. Had 1 elevated temperature of 100.7. OBJECTIVE GENERAL: man in no acute distress. CARDIOVASCULAR: Regular rate and rhythm. No murmurs, rubs or gallops. LUNGS: Clear to auscultation bilaterally. ABDOMEN: Soft, nontender and nondistended. NEURO AND PSYCH: Alert and oriented to person, place and time. Normal affect. CARDIOVASCULAR MEDICATIONS: Reviewed. LABORATORY DATA: Reviewed. TELEMETRY: Reviewed. Shows normal sinus rhythm. ASSESSMENT AND PLAN 1. Acute inferior ST-elevation myocardial infarction. 2. Right ventricular infarction. 3. Cardiogenic shock requiring intra-aortic balloon pump placement, now improved. 4. Diabetic ketoacidosis, now improved. 5. Ischemic cardiomyopathy, ejection fraction 35% to 40%. RECOMMENDATIONS: Continue dual antiplatelet therapy with aspirin and . The patient is doing well from a cardiovascular standpoint. However, having some diarrhea and low-grade fevers. Will defer to internal medicine for further recommendations regarding this. The patient to follow up in clinic in 2 weeks post discharge for further cardiovascular care if he is discharged from over the weekend. Thank you for this consult. Will continue to follow. Job#: [id number] BRENDA
[2018-07-05 16:29] VITALS: BP 97/62
[2018-07-05] MEDS ORDERED: INSULIN LISPRO 100 UNIT/1 ML 3ML VIAL SQ SCH (16:30)
--- NOTE | 2018-07-05 17:21 | NUR ---
pt removed own PIV from right hand and states he is ready to go home. explained to pt no d.c orders received and awaiting return call from MD- . will page again and await return call.
--- NOTE | 2018-07-05 18:34 | NUR ---
per patient ok to d.c home and f/u in 10 days in his office, per - patient may d/c home and f/u in his office. per - patient may d/c home and Rx will be called in to patients pharmacy, f/u in 2weeks. patient pharmacy [facility] on [facility] .
--- NOTE | 2018-07-05 18:59 | NUR ---
PT SITTING UP IN CHAIR,NO S/S OF DISTRESS NOTED.RESPIRATIONS EVEN/NON LABORED.PT WAITING ON DAUGHTER TO COME PICK HIM UP.WILL CONTINUE TO MONITOR.
[2018-07-05] MEDS ORDERED: ASPIRIN81 MG PO (19:43)
[2018-07-05] MEDS ORDERED: ATORVASTATIN CA20 MG PO (19:44)
[2018-07-05] MEDS ORDERED: LEVEMIR100 UNIT/1 SQ (19:44)
[2018-07-05] MEDS ORDERED: LISINOPRIL10 MG PO (19:45)
[2018-07-05] MEDS ORDERED: METOPROLOL SUCC50 MG PO (19:45)
[2018-07-05] MEDS ORDERED: BRILINTA90 MG PO (19:46)
--- NOTE | 2018-07-05 20:06 | NUR ---
PT DISCHARGED HOME AT THIS TIME IN STABLE CONDITION.RX GIVEN TO PATIENT/DAUGHTER.DAUGHTER AND OTHER FAMILY MEMBERS PRESENT AT THE TIME OF DISCHARGE.PT'S TELE BOX RETURNED TO RESPONSIBLE DEPARTMENT.
[2018-07-05] MEDS ORDERED: ATORVASTATIN 20 MG TAB PO SCH (21:00)
[2018-07-05] MEDS ORDERED: ATORVASTATIN 40 MG TAB PO SCH (21:00)
== END 2018-07-05 20:16 | disposition home or self-care (01) | DRG 270 ==
LOC: FSED 13:24 → ICU 16:05 → MED/SURG2 07-03 19:57
PROVIDERS: ADMIT Internal Medicine Interventional Cardiology; ATTEND Internal Medicine Interventional Cardiology
PROC: 5A02210 Assistance with Cardiac Output using Balloon Pump, Continuous (ICD-10-PCS; principal; 2018-06-30)
PROC: 02C03ZZ Extirpation of Matter from Coronary Artery, One Artery, Percutaneous Approach (ICD-10-PCS; 2018-06-30)
PROC: 027035Z Dilation of Coronary Artery, One Artery with Two Drug-eluting Intraluminal Devices, Percutaneous Approach (ICD-10-PCS; 2018-06-30)
PROC: 4A023N7 Measurement of Cardiac Sampling and Pressure, Left Heart, Percutaneous Approach (ICD-10-PCS; 2018-06-30)
PROC: B2111ZZ Fluoroscopy of Multiple Coronary Arteries using Low Osmolar Contrast (ICD-10-PCS; 2018-06-30)
PROC: B2151ZZ Fluoroscopy of Left Heart using Low Osmolar Contrast (ICD-10-PCS; 2018-06-30)
DX: I21.09 ST elevation (STEMI) myocardial infarction involving other coronary artery of anterior wall (principal); E11.10 Type 2 diabetes mellitus with ketoacidosis without coma; R57.0 Cardiogenic shock; Z79.4 Long term (current) use of insulin; I25.119 Atherosclerotic heart disease of native coronary artery with unspecified angina pectoris; I25.5 Ischemic cardiomyopathy; K76.0 Fatty (change of) liver, not elsewhere classified; R19.7 Diarrhea, unspecified; I21.11 ST elevation (STEMI) myocardial infarction involving right coronary artery; E11.42 Type 2 diabetes mellitus with diabetic polyneuropathy
CPT/HCPCS: 33970; 36415; 71045; 74018; 76705; 80048; 80053; 80061; 80076; 82150; 82550; 82553; 82948; 83036; 83690; 83735; 83880; 84439; 84443; 84484; 85025; 85347; 85379; 85610; 85730; 92928; 92973; 93005; 93306; 93454; 94760; 96372; 99284; C1766; C1769; C1874; J0153; J0360; J0461; J0583; J1327; J1644; J2001; J2250; J2270; J2405; J7030; J7040; J7050; Q9967

== ENCOUNTER 2018-07-31 04:50 | Inpatient (IN) | payer BC, MEDICARE ==
[~2018-07-31] VITALS: Ht 165.1 cm; Wt 69.9 kg
[2018-07-31] MEDS: ALBUTEROL SULF 0.083% NEB SOLN 3 ML NEB NEB SCH ×5 (00:36→19:00)
[~2018-07-31 04:50] MED LIST: ASPIRIN81 MG PO; ATORVASTATIN CA20 MG PO; BRILINTA90 MG PO; LEVEMIR100 UNIT/1 SQ; LISINOPRIL10 MG PO; METOPROLOL SUCC50 MG PO
[2018-07-31] MEDS ORDERED: ACETAMINOPHEN 1000 MG/100 ML IV STA (04:58)
[2018-07-31] MEDS ORDERED: SODIUM CHLORIDE 0.9% 1000ML 1,000 ML IV ONE ×2 (05:00→05:45)
[2018-07-31] MEDS ORDERED: CEFTRIAXONE SOD 1 GM/NS 50 ML 50 ML IV ONE (05:00)
[2018-07-31] MEDS ORDERED: SODIUM CHLORIDE 0.9% 1000ML 1,000 ML ONE (05:03)
[2018-07-31 05:18] LABS: BASOPHILS % 0.3 % (0.0-1.0); EOSINOPHILS # (AUTO) 0.1 (0.0-0.4); EOSINOPHILS % 0.8 % (0.0-6.0); HEMATOCRIT 40.6 % (38.2-49.6); LYMPHOCYTES # (AUTO) 1.4 (1.0-3.2); LYMPHOCYTES % 12.1 % (18.0-39.1); MEAN CORPUSCULAR HEMOGLOBIN 28.9 pg (28-32); MEAN CORPUSCULAR HGB CONC 34.5 g/dL (31-35); MEAN CORPUSCULAR VOLUME 83.7 fL (81-99); MONOCYTES % 9.1 % (4.4-11.3); NEUTROPHILS # (AUTO) 8.8 (2.1-6.9); NEUTROPHILS % 77.2 % (38.7-80.0); PLATELET COUNT 289 x10e3/uL (140-360); RED BLOOD COUNT 4.85 x10e6/uL (4.3-5.7); RED CELL DISTRIBUTION WIDTH 12.3 % (11.7-14.4)
[2018-07-31] MEDS ORDERED: ATORVASTATIN CA80 MG PO (05:18)
[2018-07-31] MEDS ORDERED: PANTOPRAZOLE SO40 MG PO (05:18)
[2018-07-31] MEDS ORDERED: LANTUS 3ML100 UNITS/ (05:21)
[2018-07-31] MEDS ORDERED: HUMALOG100 UNIT/1 (05:21)
[2018-07-31 05:27] LABS: CLARITY,URINE CLOUDY (CLEAR); COLOR,URINE YELLOW (YELLOW); LEUKOCYTE ESTERASE ,URINE TRACE (NEGATIVE); NITRITE,URINE NEGATIVE (NEGATIVE); PROTEIN,URINE DIPSTICK TRACE (NEGATIVE)
[2018-07-31 05:28] LABS: BILIRUBIN,URINE NEGATIVE (NEGATIVE); KETONES,URINE NEGATIVE (NEGATIVE); URINE UROBILINOGEN 1 mg/dL (0.2 - 1)
[2018-07-31 05:36] LABS: STREPTOCOCCUS GRP A ANTIGEN NEGATIVE (NEGATIVE)
[2018-07-31 05:38] LABS: BACTERIA,URINE MANY /HPF; EPITHELIAL CELLS,URINE FEW /LPF; MUCUS,URINE FEW (RARE); TRANSITIONAL EPI CELLS,URINE FEW; WBC,URINE (MAN) >50 /HPF (0-5)
[2018-07-31 05:42] LABS: INFLUENZAE A&B ANTIGEN (RAPID) NEGATIVE (NEGATIVE)
[2018-07-31 05:50] LABS: ALANINE AMINOTRANSFERASE 37 IU/L (0-55); ALBUMIN 3.4 g/dL (3.5-5.0); ALKALINE PHOSPHATASE 89 IU/L (40-150); ANION GAP 15.1 mmol/L (8-16); BLOOD UREA NITROGEN 11 mg/dL (7-26); BUN/CREATININE RATIO 16 (6-25); CALCIUM 9.3 mg/dL (8.4-10.2); CARBON DIOXIDE 21 mmol/L (22-29); CHLORIDE 97 mmol/L (98-107); CREATINE KINASE 31 IU/L (30-200); EST GLOMERULAR FILTRATION RATE > 60 ML/MIN (60-); GLUCOSE 158 mg/dL (74-118); POTASSIUM 4.1 mmol/L (3.5-5.1); SODIUM 129 mmol/L (136-145)
--- NOTE | 2018-07-31 05:53 | Diagnostic Imaging Report ---
EXAMINATION: CHEST SINGLE (PORTABLE) INDICATION: ^fever, sob ^[id number] ^0518 ^Y COMPARISON: 06/30/2018 FINDINGS: AP view TUBES and LINES: None. LUNGS: Lungs are well inflated. Mild left basilar opacification. PLEURA: No pneumothorax. HEART AND MEDIASTINUM: The cardiomediastinal silhouette is unremarkable. BONES AND SOFT TISSUES: No acute osseous lesion. Soft tissues are unremarkable. UPPER ABDOMEN: No free air under the diaphragm. IMPRESSION: Mild left basilar opacification, representing atelectasis, small effusion, or developing pneumonia. Signed by: Dr. Zbigniew Arceo MD on 07/31/2018 5:50 AM
[2018-07-31] MEDS ORDERED: SODIUM CHLORIDE 0.9% 50ML 50 ML ONE ×2 (06:07→15:35)
[2018-07-31] MEDS ORDERED: IOPAMIDOL 370 MG/ML 200 ML INFUS..BTL INJ ONE ×2 (06:07→15:35)
[2018-07-31] MEDS ORDERED: AZITHROMYCIN 500MG/NS 250 ML 250 ML IV STA (06:09)
[2018-07-31 06:31] LABS: INR 1.05; PROTHROMBIN TIME 14.7 seconds (11.9-14.5)
[2018-07-31 06:32] LABS: PARTIAL THROMBOPLASTIN TIME 39.4 seconds (23.8-35.5)
--- NOTE | 2018-07-31 06:50 | Diagnostic Imaging Report ---
EXAM: CT Chest WITH contrast (PE Protocol) INDICATION: ^pe protocol ^[id number] ^0620 ^Y COMPARISON: Same day chest x-ray TECHNIQUE: Chest was scanned utilizing a multidetector helical scanner from the lung apex through the level of the diaphragm after administration of IV contrast. Thin section reconstructions were obtained with special concentration on the pulmonary arteries. Coronal and sagittal reformations were obtained. Dose modulation, iterative reconstruction, and/or weight based adjustment of the mA/kV was utilized to reduce the radiation dose to as low as reasonably achievable. Pulmonary embolism protocol was performed. IV CONTRAST: 100 mL of Isovue-370 COMPLICATIONS: None RADIATION DOSE: Total DLP: 543 mGy*cm Estimated effective dose: (DLP x 0.014 x size factor) mSv CTDIvol has been reviewed. It is below the limits set by the Radiation Protocol Committee (RPC). FINDINGS: LINES/ TUBES: None. LUNGS AND AIRWAYS: No filling defect is identified within the pulmonary arteries to the segmental level. Pulmonary vascular congestion and mild interstitial edema. Bibasilar atelectasis/scarring. Left lower lobe consolidation Airways are normal. PLEURA: Small left pleural effusion. HEART AND MEDIASTINUM: The thyroid gland is normal. No mediastinal, hilar or axillary lymphadenopathy. The heart is mildly enlarged. There is a small pericardial effusion. . Main pulmonary artery measures 2.5 cm in diameter and the ascending aorta measures 3.3 cm. Atherosclerotic calcification of coronary arteries. UPPER ABDOMEN: Unremarkable BONES: The visualized bony thorax is within normal limits. SOFT TISSUES: Unremarkable. IMPRESSION: No pulmonary emboli. Pulmonary vascular congestion and mild interstitial edema. Small left pleural effusion with adjacent consolidation, representing atelectasis and/or pneumonia. Small pericardial effusion. Signed by: Dr. Zbigniew Arceo MD on 07/31/2018 6:46 AM
[2018-07-31] MEDS ORDERED: DEXTROSE 50% SYRINGE 50 ML IV PRN (07:00)
[2018-07-31] MEDS ORDERED: AZITHROMYCIN 500MG/SOD CHL 0.9% 250ML BAG IV SCH (07:00)
[2018-07-31] MEDS ORDERED: ONDANSETRON HCL INJ 2MG/ML 2ML 2 MG/ML VIAL IV PRN (07:00)
[2018-07-31] MEDS ORDERED: CEFTRIAXONE SOD 1 GRAM/0.9% SOD CHL 50ML BAG IV SCH (07:00)
[2018-07-31] MEDS: PANTOPRAZOLE SOD 40 MG TABEC PO SCH (07:35)
[2018-07-31] MEDS: SODIUM CHLORIDE 0.9% 1000ML 1,000 ML IV SCH ×2 (07:35→12:23)
[2018-07-31] MEDS: INSULIN REGULAR, HUMAN 100 UNIT/1 ML 3ML VIAL SQ SCH ×4 (07:38→21:00)
[2018-07-31] MEDS: IPRATROPIUM BROMIDE 0.02% 2.5 ML NEB NEB SCH ×3 (07:45→19:00)
[2018-07-31 08:00] VITALS: BP 95/58
--- NOTE | 2018-07-31 08:25 | NUR ---
Pt received from ER via stretcher. Alert and oriented x4 but Brazilian speaking only. Oriented to staff and surroundings, encouraged to press call kay if help needed. All meds given as ordered. Emotional support given. Fall precautions maintained. Will monitor
[2018-07-31] MEDS ORDERED: PNEUMOCOCCAL VACCINE POLYVALENT 23 MCG/0.5 ML VIAL IM NR (11:00)
[2018-07-31] MEDS ORDERED: INFLUENZA VIRUS VAC SPLIT INJ 0.5 ML SYR IM NR (11:00)
[2018-07-31 12:00] VITALS: BP 88/53
[2018-07-31] MEDS: TICAGRELOR 90 MG TABLET PO SCH ×2 (12:23→18:31)
[2018-07-31] MEDS: ASPIRIN 81 MG CHEW TAB PO SCH (12:23)
[2018-07-31] MEDS ORDERED: SODIUM CHLORIDE 0.9% 500ML 500 ML IV ONE (12:25)
[2018-07-31 15:27] LABS: CREATINE KINASE MB 1.2 ng/mL (0-5.0)
[2018-07-31 16:00] VITALS: BP 102/65
[2018-07-31 18:34] LABS: FREE THYROXINE INDEX 2.0942 (1.4-3.8); THYROID STIMULATING HORMONE 1.749 uIU/mL (0.350-4.940)
[2018-07-31 20:00] VITALS: BP 124/69
[2018-07-31 20:52] VITALS: BP 102/65
--- NOTE | 2018-07-31 20:53 | NUR ---
RECEIVED PT IN BED AOX3 .RESPIRATIONS ARE EVEN AND UNLABORED FAMILY AT THE BEDSIDE .ZEN WEBER WITH IN REACH .CONTINUE TO MONITOR
[2018-07-31] MEDS ORDERED: NON-FORMULARY MEDICATION (Atorvastatin Calcium 80 MG) PO SCH (21:00)
[2018-07-31] MEDS: ATORVASTATIN 40 MG TAB PO SCH (21:21)
[2018-07-31] MEDS: ACETAMINOPHEN 325 MG TAB PO PRN (21:22)
[2018-08-01] VITALS (8 sets, daily range): BP systolic 99–120; BP diastolic 58–75
[2018-08-01] MEDS: IPRATROPIUM BROMIDE 0.02% 2.5 ML NEB NEB SCH ×5 (00:35→23:00)
[2018-08-01] MEDS: ACETAMINOPHEN 325 MG TAB PO PRN (01:36)
--- NOTE | 2018-08-01 02:32 | History and Physical ---
The patient is in [facility]-S[facility] Unit. REASON FOR CONSULTATION: The patient came in with left-sided chest pain and shoulder pain. HISTORY OF PRESENT ILLNESS: This is Mr. Guzmán, a known history of coronary artery disease and hypertension, was in usual state of health until 3 days ago. The patient started with upper back pain, bilateral shoulder pain, and then went on to the left side with radiation to the left arm. The patient did have constant pain and came into the emergency room and was found to have pneumonia and was admitted for the same. PAST MEDICAL HISTORY: History of hypertension, history of hyperlipidemia, history of diabetes mellitus, history of reflux esophagitis. The patient recently was admitted for chest pain, had PCI with stents and is on Brilinta 9 mg twice a day. MEDICATIONS: 1. Aspirin 81 mg. 2. Atorvastatin 80 mg. 3. Insulin Glargine, dose unknown. 4. Insulin lispro, dose unknown. 5. Lisinopril 10 mg daily. 6. Metoprolol 50 mg daily. 7. Pantoprazole 40 mg daily. 8. Brilinta 90 mg twice a day. PAST SURGICAL HISTORY: . ALLERGIES: THE PATIENT HAS NO DRUG ALLERGIES. SOCIAL HISTORY: History of smoking and drinking until 1994. The patient stopped smoking in June of 2018. He used to smoke 1 pack per day. FAMILY HISTORY: Positive for hypertension, diabetes mellitus, and coronary artery disease. REVIEW OF SYSTEMS: Possibly chest pain. No shortness of breath. No nausea, vomiting, diarrhea. No constipation. No rectal bleeding. No hematochezia. No hematemesis. No coughing. No diplopia. No blurry vision. No headaches. No paresthesia and hyperesthesia. PHYSICAL EXAMINATION: GENERAL: The patient is alert and oriented x3. He is on oxygen support at this time with 2 L of oxygen. VITAL SIGNS: Temperature is 98.5, pulse of 88, respirations of 20, blood pressure is 88/53, pulse oximetry 92% on 2 L of oxygen. HEENT: Normocephalic and atraumatic. Pupils react to light and accommodation. CVS: Irregularly regular. ABDOMEN: Nontender and nondistended. LUNGS: Decreased air entry, otherwise good lung siu. No adventitious sounds. EXTREMITIES: No clubbing, no cyanosis. No edema. LABORATORY DATA: Initial white count is 11.37, hemoglobin 14.0, hematocrit 40.6. Chemistry: Sodium of 129, potassium is 4.1, BUN of 11, creatinine 0.70, glucose of 158. Lactic acid was 8.4. AST and ALT 21 and 37. Troponin 0.045 and his first one was 0.050. The patient's BNP was not done. Coags were normal. INR 1.50. The patient's D-dimer was 1200. IMAGING DATA: Chest x-ray shows mild left basilar opacification, represents atelectasis, small effusion and developing pneumonia. His CT of the chest shows no pulmonary emboli and pulmonary vascular congestion, mild interstitial edema, small left pleural effusion with adjustment consolidation, presenting with atelectasia and pneumonia and small pericardial effusion. ASSESSMENT AND PLAN: 1. Pneumonia. The patient has been started on azithromycin and Rocephin, which we will continue. 2. History of coronary artery disease. We will restart all his medications including his Brilinta. 3. History of diabetes mellitus. We will continue monitoring the patient. The patient's last EF was 40%. The patient is having acute anterior ST elevation and myocardial infarction at that point. The patient had occlusion of his right coronary arteries and had undergone percutaneous intervention. The patient also had diabetic ketoacidosis and his doctor, Dr. Read, is actually maintaining it. At this time, the patient will continue on medications. The patient also has hyponatremia. We will go ahead and fluid resuscitate him and check his sodium levels in the morning. 4. Further recommendation and clinical course, we will continue to monitor the patient. MD DUSTIN Goncalves/MODL /[id number]
[2018-08-01 06:07] LABS: BASOPHILS % 0.3 % (0.0-1.0); EOSINOPHILS # (AUTO) 0.2 (0.0-0.4); EOSINOPHILS % 2.3 % (0.0-6.0); HEMATOCRIT 35.2 % (38.2-49.6); LYMPHOCYTES # (AUTO) 0.9 (1.0-3.2); LYMPHOCYTES % 14.3 % (18.0-39.1); MEAN CORPUSCULAR HEMOGLOBIN 29.3 pg (28-32); MEAN CORPUSCULAR HGB CONC 34.1 g/dL (31-35); MEAN CORPUSCULAR VOLUME 85.9 fL (81-99); MONOCYTES # (AUTO) 0.4 (0.2-0.8); MONOCYTES % 6.5 % (4.4-11.3); NEUTROPHILS # (AUTO) 4.9 (2.1-6.9); PLATELET COUNT 211 x10e3/uL (140-360); RED CELL DISTRIBUTION WIDTH 12.4 % (11.7-14.4)
[2018-08-01] MEDS: AZITHROMYCIN 500MG/NS 250 ML 250 ML IV SCH (06:08)
[2018-08-01 06:38] LABS: ALANINE AMINOTRANSFERASE 32 IU/L (0-55); ALBUMIN 2.9 g/dL (3.5-5.0); ALBUMIN/GLOBULIN RATIO 0.9 (0.8-2.0); ALKALINE PHOSPHATASE 74 IU/L (40-150); ANION GAP 13.6 mmol/L (8-16); BLOOD UREA NITROGEN 9 mg/dL (7-26); BUN/CREATININE RATIO 13 (6-25); CALCIUM 8.5 mg/dL (8.4-10.2); CARBON DIOXIDE 23 mmol/L (22-29); CHLORIDE 104 mmol/L (98-107); CREATININE, SERUM 0.72 mg/dL (0.72-1.25); EST GLOMERULAR FILTRATION RATE > 60 ML/MIN (60-); GLUCOSE 162 mg/dL (74-118); POTASSIUM 3.6 mmol/L (3.5-5.1); SODIUM 137 mmol/L (136-145)
--- NOTE | 2018-08-01 06:56 | NUR ---
PT HAD FEVER DURING THE NIGHT GIVEN ORDERED TYLENOL AND FEVER WENT DOWN .CALL LIGHT WITH IN REACH .REPORT GIVEN TO THE ONCOMING NURSE
[2018-08-01] MEDS: ALBUTEROL SULF 0.083% NEB SOLN 3 ML NEB NEB SCH ×5 (06:58→23:00)
--- NOTE | 2018-08-01 07:18 | NUR ---
PT HAD FEVER AND GIVEN TYLENOL AND FEVER WENT DOWN AND GIVEN THE REPORT TO ONCOMING NURSE .
--- NOTE | 2018-08-01 07:22 | NUR ---
REPORT GIVEN TO THE ONCOMING NURSE
[2018-08-01] MEDS: LISINOPRIL 10 MG TAB PO SCH (09:00)
[2018-08-01] MEDS: METOPROLOL SUCCINATE 50 MG TAB XL PO SCH (09:00)
[2018-08-01] MEDS: CEFTRIAXONE SOD 1 GM/NS 50 ML 50 ML IV SCH (09:04)
[2018-08-01] MEDS: PANTOPRAZOLE SOD 40 MG TABEC PO SCH (09:05)
[2018-08-01] MEDS: ASPIRIN 81 MG CHEW TAB PO SCH (09:05)
[2018-08-01] MEDS: TICAGRELOR 90 MG TABLET PO SCH ×2 (09:05→17:32)
--- NOTE | 2018-08-01 09:05 | NUR ---
Pt received resting in bed. All meds given as ordered. Call kay within reach. Fall precautions maintained. Will monitor
[2018-08-01] MEDS: INSULIN REGULAR, HUMAN 100 UNIT/1 ML 3ML VIAL SQ SCH ×4 (09:06→20:57)
--- NOTE | 2018-08-01 10:08 | Progress Note ---
DATE: SUBJECTIVE: This is a 67-year-old male, who comes in with community-acquired pneumonia. The patient is currently on antibiotics, was febrile yesterday, Tylenol was given. Currently, the patient is asymptomatic. No chest pain, no shortness of breath. No nausea, vomiting or diarrhea. No constipation. OBJECTIVE: GENERAL: The patient is alert and oriented x3. VITAL SIGNS: At this time are not available. HEENT: Normocephalic and atraumatic. Pupils are reactive to light and accommodation. CVS: S1 and S2 normal. Regular rate and rhythm. ABDOMEN: Nontender and nondistended. LUNGS: Positive for rhonchi bilaterally. EXTREMITIES: No clubbing, no cyanosis, and no edema. LABORATORY DATA: The patient's laboratory values are not available at this time, computer is down. ASSESSMENT: Bacterial pneumonia. The patient is responding clinically to the IV antibiotics, Rocephin and Zithromax, we will continue with that. The patient also has acute urinary tract infection and cystitis. We will continue to monitor the patient. Labs are pending and microbiology is pending at this time. The patient also has a history of atrial fibrillation, history of congestive heart failure, history of hyponatremia, and history of dehydration and acute renal failure. Gentle diuresis is continued. We will follow up with BUN and creatinine when available. Continue with antibiotic. For cystitis, we will continue with antibiotics too. For atrial fibrillation, continue with anticoagulation and beta-blockade and lisinopril. Further recommendations and clinical course, we will continue to monitor the patient. We will follow the patient along with electrolyte repletion as needed. MD DUSTIN Goncalves/MODL /[id number]
--- NOTE | 2018-08-01 20:14 | NUR ---
RECEIVED PT IN BED AOX3 .DENIES PAIN .NS IS RUNNING AT 75 ML/HR .FAMILY AT THE BEDSIDE CALL LIGHT WITH IN REACH .CONTINUE TO MONITOR
[2018-08-01] MEDS: ATORVASTATIN 40 MG TAB PO SCH (20:43)
[2018-08-02] VITALS (8 sets, daily range): BP systolic 95–118; BP diastolic 66–76
[2018-08-02] MEDS: ALBUTEROL SULF 0.083% NEB SOLN 3 ML NEB NEB SCH ×5 (03:47→19:15)
[2018-08-02] MEDS ORDERED: LANTUS 3ML100 UNITS/ SC ×2 (04:15)
[2018-08-02] MEDS: AZITHROMYCIN 500MG/NS 250 ML 250 ML IV SCH (06:00)
--- NOTE | 2018-08-02 06:00 | NUR ---
PT RESTED AND NO ACUTE DISTRESS NOTED .CALL LIGHT WITH IN REACH .CONTINUE TO MONITOR
[2018-08-02 06:14] LABS: EOSINOPHILS # (AUTO) 0.2 (0.0-0.4); EOSINOPHILS % 3.4 % (0.0-6.0); HEMATOCRIT 34.8 % (38.2-49.6); HEMOGLOBIN 11.5 g/dL (14.0-18.0); LYMPHOCYTES # (AUTO) 1.5 (1.0-3.2); LYMPHOCYTES % 25.3 % (18.0-39.1); MEAN CORPUSCULAR HEMOGLOBIN 28.3 pg (28-32); MEAN CORPUSCULAR VOLUME 85.5 fL (81-99); MONOCYTES # (AUTO) 0.6 (0.2-0.8); MONOCYTES % 9.4 % (4.4-11.3); NEUTROPHILS # (AUTO) 3.6 (2.1-6.9); NEUTROPHILS % 61.6 % (38.7-80.0); PLATELET COUNT 221 x10e3/uL (140-360); RED BLOOD COUNT 4.07 x10e6/uL (4.3-5.7); RED CELL DISTRIBUTION WIDTH 12.5 % (11.7-14.4)
[2018-08-02] MEDS ORDERED: HUMALOG100 UNIT/1 SC (06:22)
[2018-08-02 06:39] LABS: ANION GAP 13.5 mmol/L (8-16); BLOOD UREA NITROGEN 6 mg/dL (7-26); BUN/CREATININE RATIO 10 (6-25); CALCIUM 8.5 mg/dL (8.4-10.2); CARBON DIOXIDE 22 mmol/L (22-29); CHLORIDE 105 mmol/L (98-107); CREATININE, SERUM 0.63 mg/dL (0.72-1.25); EST GLOMERULAR FILTRATION RATE > 60 ML/MIN (60-); GLUCOSE 117 mg/dL (74-118); POTASSIUM 3.5 mmol/L (3.5-5.1); SODIUM 137 mmol/L (136-145)
[2018-08-02] MEDS: IPRATROPIUM BROMIDE 0.02% 2.5 ML NEB NEB SCH ×3 (07:00→19:15)
--- NOTE | 2018-08-02 07:06 | NUR ---
RECEIVED PATIENT RESTING IN BED. RESPIRATIONS EVEN AND UNLABORED. NO ACUTE DISTRESS NOTED. DENIES PAIN OR DISCOMFORT. CALL LIGHT WITHIN REACH. BED IN THE LOWEST POSITION.
--- NOTE | 2018-08-02 07:21 | NUR ---
REPORT GIVEN TOT HE ON COMING NURSE
[2018-08-02] MEDS: INSULIN REGULAR, HUMAN 100 UNIT/1 ML 3ML VIAL SQ SCH ×4 (07:30→21:46)
--- NOTE | 2018-08-02 07:50 | NUR ---
PATIENT PLACED ON TELEMETRY AT THIS TIME ORDERED BY .
[2018-08-02] MEDS: CEFTRIAXONE SOD 1 GM/NS 50 ML 50 ML IV SCH (08:36)
[2018-08-02] MEDS: TICAGRELOR 90 MG TABLET PO SCH ×2 (08:36→17:11)
[2018-08-02] MEDS: PANTOPRAZOLE SOD 40 MG TABEC PO SCH (08:36)
[2018-08-02] MEDS: ASPIRIN 81 MG CHEW TAB PO SCH (08:36)
[2018-08-02] MEDS: LISINOPRIL 10 MG TAB PO SCH (08:37)
[2018-08-02] MEDS: METOPROLOL SUCCINATE 50 MG TAB XL PO SCH (08:37)
[2018-08-02] MEDS: INSULIN GLARGINE 100 UNITS/ML VIAL SQ SCH (08:37)
[2018-08-02] MEDS ORDERED: NON-FORMULARY MEDICATION (Insulin Glargine (Lantus 3ML Pen) 20 UNIT) SC SCH (09:00)
--- NOTE | 2018-08-02 10:42 | Progress Note ---
DATE: SUBJECTIVE: The patient is a 67-year-old male with a history of coronary artery disease, history of recent MT, history of hypertension, comes in with pneumonia and also urinary tract infections. The patient is currently asymptomatic and receiving breathing treatment. He has no complaints at this time. Has not walked yesterday. OBJECTIVE: VITAL SIGNS: Temperature is 98.0, he has been afebrile, pulse of 95, respiration of 19, blood pressure is 108/68, pulse oximetry 96%. HEENT: Normocephalic, atraumatic. Pupils are reactive to light and accommodation. CVS: S1 and S2 normal. The patient is in regular rate and rhythm at this time. ABDOMEN: Nontender, nondistended. EXTREMITIES: No clubbing, no cyanosis, no edema. LABORATORY VALUES: Sodium is 137, potassium is 3.5, BUN of 6, and creatinine 0.63. Hematology; patient's white count is 5.85, hemoglobin of 11.5, hematocrit of 34.8. Left shift is gone. Coagulations; INR of 1.0 . Microbiology; urine culture shows Proteus mirabilis sensitive to Rocephin. ASSESSMENT: 1. A 67-year-old gentleman with pneumonia. 2. Urinary tract infection and cystitis. 3. Atrial fibrillation. 4. Coronary artery disease. 5. Hypertension. 6. Hyperlipidemia. PLAN: Continue with IV Rocephin and Zithromax. The patient is also debilitated. We will have Physical Therapy work with him. A telemonitoring will be also ordered. For atrial fibrillation, continue on anticoagulation, beta-anastasiya and lisinopril for CHF. Further recommendation per clinical course. We will continue to monitor the patient. Labs will be done and also Physical Therapy did talk to the daughter. The patient needs outpatient SNF and/or home health. This has been conveyed to the daughter. Daughter will try to impress this on the patient because at this point of time, the patient is not compliant with any of them. MD DIANNE GoncalvesJ/JOCYL /[id number]
--- NOTE | 2018-08-02 19:26 | NUR ---
REPORT GIVEN TO ONCOMING NURSE, WALKING ROUNDS DONE. PATIENT IS RESTING IN BED. RESPIRATIONS EVEN AND UNLABORED, NO ACUTE DISTRESS NOTED. CALL LIGHT WITHIN REACH. BED IN THE LOWEST POSITION.
--- NOTE | 2018-08-02 19:37 | NUR ---
PT IS RESTING IN BED. NO RESPIRATORY DISTRESS NOTED. BED IN THE LOWEST POSITION, LOCKED, AND CALL LIGHT WITHIN REACH. WILL CONTINUE TO MONITOR.
[2018-08-02] MEDS ORDERED: INSULIN GLARGINE SC SCH (21:00)
[2018-08-02] MEDS ORDERED: INSULIN GLARGINE 100 UNITS/ML VIAL SQ SCH (21:00)
[2018-08-02] MEDS: ATORVASTATIN 40 MG TAB PO SCH (21:46)
[2018-08-03] VITALS: BP 94/56
[2018-08-03] MEDS: ALBUTEROL SULF 0.083% NEB SOLN 3 ML NEB NEB SCH ×4 (03:00→11:34)
[2018-08-03 03:59] VITALS: BP 102/60
[2018-08-03] MEDS: AZITHROMYCIN 500MG/NS 250 ML 250 ML IV SCH (05:12)
[2018-08-03 06:20] LABS: BASOPHILS % 0.1 % (0.0-1.0); EOSINOPHILS # (AUTO) 0.2 (0.0-0.4); EOSINOPHILS % 3.2 % (0.0-6.0); HEMATOCRIT 36.5 % (38.2-49.6); HEMOGLOBIN 12.2 g/dL (14.0-18.0); LYMPHOCYTES # (AUTO) 1.5 (1.0-3.2); LYMPHOCYTES % 21.2 % (18.0-39.1); MEAN CORPUSCULAR HEMOGLOBIN 28.5 pg (28-32); MEAN CORPUSCULAR HGB CONC 33.4 g/dL (31-35); MEAN CORPUSCULAR VOLUME 85.3 fL (81-99); MONOCYTES # (AUTO) 0.5 (0.2-0.8); MONOCYTES % 7.7 % (4.4-11.3); NEUTROPHILS # (AUTO) 4.6 (2.1-6.9); NEUTROPHILS % 67.4 % (38.7-80.0); PLATELET COUNT 260 x10e3/uL (140-360); RED BLOOD COUNT 4.28 x10e6/uL (4.3-5.7); RED CELL DISTRIBUTION WIDTH 12.3 % (11.7-14.4)
[2018-08-03 06:41] LABS: BLOOD UREA NITROGEN 12 mg/dL (7-26); BUN/CREATININE RATIO 17 (6-25); CARBON DIOXIDE 26 mmol/L (22-29); CHLORIDE 103 mmol/L (98-107); CREATININE, SERUM 0.69 mg/dL (0.72-1.25); EST GLOMERULAR FILTRATION RATE > 60 ML/MIN (60-); GLUCOSE 155 mg/dL (74-118); SODIUM 137 mmol/L (136-145)
--- NOTE | 2018-08-03 07:02 | NUR ---
RECEIVED PATIENT RESTING IN BED. NO ACUTE DISTRESS OR SOB NOTED. CALL LIGHT WITHIN REACH. BED IN THE LOWEST POSITION.
[2018-08-03 07:30] VITALS: BP 107/65
[2018-08-03] MEDS: INSULIN REGULAR, HUMAN 100 UNIT/1 ML 3ML VIAL SQ SCH ×2 (07:30→12:09)
[2018-08-03] MEDS: IPRATROPIUM BROMIDE 0.02% 2.5 ML NEB NEB SCH ×2 (07:42)
[2018-08-03] MEDS: CEFTRIAXONE SOD 1 GM/NS 50 ML 50 ML IV SCH (07:56)
[2018-08-03] MEDS: ASPIRIN 81 MG CHEW TAB PO SCH (07:56)
[2018-08-03] MEDS: TICAGRELOR 90 MG TABLET PO SCH (07:56)
[2018-08-03] MEDS: PANTOPRAZOLE SOD 40 MG TABEC PO SCH (07:56)
[2018-08-03] MEDS: METOPROLOL SUCCINATE 50 MG TAB XL PO SCH (07:57)
[2018-08-03] MEDS: LISINOPRIL 10 MG TAB PO SCH (07:57)
[2018-08-03] MEDS: INSULIN GLARGINE 100 UNITS/ML VIAL SQ SCH (07:57)
[2018-08-03 08:34] VITALS: BP 107/65
[2018-08-03] MEDS ORDERED: LISINOPRIL2.5 MG PO (08:55)
[2018-08-03] MEDS ORDERED: LISINOPRIL5 MG PO (08:58)
[2018-08-03] MEDS ORDERED: LEVAQUIN500 MG PO (08:59)
--- NOTE | 2018-08-03 10:14 | NUR ---
CASE MANAGEMENT IN TO SEE PATIENT IN REGARDS TO HOME HEALTH. PATIENT REFUSING HOME HEALTH, NOTIFIED. PATIENT CAN GO HOME WITHOUT HOME HEALTH. DAUGHTER JANETTE NOTIFIED.
[2018-08-03 12:06] VITALS: BP 120/72
--- NOTE | 2018-08-03 12:27 | NUR ---
SPOKE WITH PT ABOUT HOME HEALTH ORDER, HE FLAT REFUSED. HE STATED THAT IF HE HAD TO PAY ANYTHING HE DID NOT WANT. I EXPLAINED THEY WOULD COME TO THE HOME AND EVALUATE AND DISCUSS ALL OF THAT INFORMATION. I WOULD NOT BE ABLE TO TELL HIM COPAY PORTIONS THE COMPANY WOULD HAVE TO LET KNOW.
--- NOTE | 2018-08-03 13:32 | Progress Note ---
DATE: SUBJECTIVE: The patient is a 67-year-old male comes in with: 1. Acute pneumonia, community acquired. 2. Urinary tract infection. Currently, the patient is asymptomatic, did well with physical therapy. Shortness of breath is baseline at this time. Afebrile. No complaints by the patient and wants to go home. Physical therapy did work with the patient and he did fine. Did talk to the daughter yesterday and the patient at that time did not want SNF arranged and the patient wants to go home with home health. PHYSICAL EXAMINATION: VITAL SIGNS: Currently afebrile, temperature is 98.8, T-max is 99.6; pulse 76, respirations of 18, blood pressure is 102/60, and pulse oximetry of 96%. HEENT: Normocephalic and atraumatic. Pupils are reactive to light and accommodation. CVS: S1 and S2 normal. Regular rate and rhythm. ABDOMEN: Nontender and nondistended. EXTREMITIES: No clubbing, no cyanosis, and no edema. LABORATORY VALUES: Today's sodium is 137, potassium 4.0, BUN of 12, creatinine of 0.69, and glucose has been trending in the 150s to 240s. Hematology: White count of 6.89, hemoglobin of 12.2, and hematocrit of 36.5. Coags are normal. Urine microbiology did show Proteus mirabilis, sensitive to Rocephin. ASSESSMENT AND PLAN: 1. Community-acquired pneumonia. The patient can be discharged on Levaquin. 2. Urinary tract infection and cystitis secondary to Proteus, sensitive to Levaquin. 3. Atrial fibrillation. We will continue with anticoagulation. 4. Coronary artery disease. We will continue on beta blockade and lisinopril. 5. Hypertension. With current hypotension, we will put parameters on blood pressure medication. 6. Hyperlipidemia. We will continue on statin. The patient can be discharged home with home health when accepted. Further recommendation as an outpatient. The patient has to be followed with Dr. Garza for a congestive heart failure and his atrial fibrillation and with Dr. Holt for his diabetes mellitus. MD DUSTIN Goncalves/DENNIS /[id number]
--- NOTE | 2018-08-03 14:23 | NUR ---
RECEIVED DC ORDER FROM MD, PATIENT IS IN STABLE CONDITION. DENIES PAIN OR DISCOMFORT. IV LINE TO RIGHT AC DC'D AT THIS TIME WITH TIP INTACT, PRESSURE APPLIED TO SITE, NO BLEEDING NOTED. DISCHARGE TEACHING PROVIDED TO PATIENT AND DAUGHTER, THEY BOTH VERBALIZED UNDERSTANDING. DISCHARGE PAPERWORK WITH PRESCRIPTIONS PLACED IN DC FOLDER. PERSONAL ITEMS ON HAND. PATIENT ACCOMPANIED TO PRIVATE AUTO VIA WHEELCHAIR BY STAFF.
== END 2018-08-03 14:36 | disposition home or self-care (01) | DRG 193 ==
LOC: ER 04:50 → ERHOLD 07:00 → MED/SURG3 08:01
PROVIDERS: ADMIT Family Medicine; ATTEND Family Medicine
DX: J15.9 Unspecified bacterial pneumonia (principal); E11.10 Type 2 diabetes mellitus with ketoacidosis without coma; N30.01 Acute cystitis with hematuria; I50.22 Chronic systolic (congestive) heart failure; E87.1 Hypo-osmolality and hyponatremia; N17.9 Acute kidney failure, unspecified; I31.3 Pericardial effusion (noninflammatory); M25.511 Pain in right shoulder; M25.512 Pain in left shoulder; I25.2 Old myocardial infarction; E78.5 Hyperlipidemia, unspecified; Z95.5 Presence of coronary angioplasty implant and graft; I25.10 Atherosclerotic heart disease of native coronary artery without angina pectoris; N18.9 Chronic kidney disease, unspecified; Z79.4 Long term (current) use of insulin; B96.4 Proteus (mirabilis) (morganii) as the cause of diseases classified elsewhere; Z16.23 Resistance to quinolones and fluoroquinolones; I48.91 Unspecified atrial fibrillation; Z79.01 Long term (current) use of anticoagulants; F17.210 Nicotine dependence, cigarettes, uncomplicated; I11.0 Hypertensive heart disease with heart failure
CPT/HCPCS: 36415; 71045; 71260; 80048; 80053; 81001; 82550; 82553; 82948; 83518; 83605; 83880; 84436; 84443; 84479; 84484; 85025; 85379; 85610; 85730; 87040; 87070; 87086; 87186; 87400; 90732; 93005; 94640; 96361; 99284; J0456; J0696; J1815; J7030; J7040; Q9967

== ENCOUNTER 2020-05-06 22:17 | Emergency (ER) | payer MEDICARE ==
[~2020-05-06] VITALS: Ht 165.1 cm; Wt 83.9 kg
[~2020-05-06 22:17] MED LIST changes: +ATORVASTATIN CA80 MG PO; +HUMALOG100 UNIT/1; +HUMALOG100 UNIT/1 SC; +LANTUS 3ML100 UNITS/; +LANTUS 3ML100 UNITS/ SC; +LEVAQUIN500 MG PO; +LISINOPRIL2.5 MG PO; +LISINOPRIL5 MG PO; +PANTOPRAZOLE SO40 MG PO
[2020-05-06] MEDS ORDERED: CEFTRIAXONE SOD 1 GM/NS 50 ML 50 ML IV ONE (22:30)
[2020-05-06] MEDS ORDERED: SODIUM CHLORIDE 0.9% 1000ML 1,000 ML IV ONE ×2 (22:30→22:45)
[2020-05-06] MEDS ORDERED: ASPIRIN 81 MG CHEW TAB PO ONE (22:30)
[2020-05-06] MEDS ORDERED: ACETAMINOPHEN 325 MG TAB PO ONE (22:30)
[2020-05-06 22:46] LABS: BASOPHILS % 0.2 % (0.0-1.0); EOSINOPHILS % 0.2 % (0.0-6.0); HEMATOCRIT 42.6 % (38.2-49.6); HEMOGLOBIN 13.9 g/dL (14.0-18.0); LYMPHOCYTES # (AUTO) 0.8 (1.0-3.2); LYMPHOCYTES % 15.7 % (18.0-39.1); MEAN CORPUSCULAR HEMOGLOBIN 28.1 pg (28-32); MEAN CORPUSCULAR HGB CONC 32.6 g/dL (31-35); MEAN CORPUSCULAR VOLUME 86.2 fL (81-99); MONOCYTES # (AUTO) 0.5 (0.2-0.8); MONOCYTES % 9.4 % (4.4-11.3); NEUTROPHILS # (AUTO) 3.8 (2.1-6.9); NEUTROPHILS % 74.3 % (38.7-80.0); PLATELET COUNT 178 x10e3/uL (140-360); RED BLOOD COUNT 4.94 x10e6/uL (4.3-5.7); RED CELL DISTRIBUTION WIDTH 13.7 % (11.7-14.4)
[2020-05-06 22:52] LABS: BILIRUBIN,URINE NEGATIVE (NEGATIVE); CLARITY,URINE CLEAR (CLEAR); COLOR,URINE YELLOW (YELLOW); KETONES,URINE NEGATIVE (NEGATIVE); LEUKOCYTE ESTERASE ,URINE NEGATIVE (NEGATIVE); NITRITE,URINE NEGATIVE (NEGATIVE); PROTEIN,URINE DIPSTICK 2+ (NEGATIVE); URINE UROBILINOGEN 1 mg/dL (0.2 - 1)
[2020-05-06 23:00] LABS: AMORPHOUS SEDIMENT,URINE RARE (FEW); BACTERIA,URINE FEW /HPF; EPITHELIAL CELLS,URINE RARE /LPF; RBC,URINE 0-5 /HPF (0-5); WBC,URINE (MAN) 0-5 /HPF (0-5)
[2020-05-06 23:03] LABS: ALANINE AMINOTRANSFERASE 38 IU/L (0-55); ALBUMIN 3.9 g/dL (3.5-5.0); ALBUMIN/GLOBULIN RATIO 1.1 (0.8-2.0); ALKALINE PHOSPHATASE 90 IU/L (40-150); ANION GAP 14.2 mmol/L (8-16); BLOOD UREA NITROGEN 23 mg/dL (7-26); BUN/CREATININE RATIO 23 (6-25); CALCIUM 8.1 mg/dL (8.4-10.2); CARBON DIOXIDE 24 mmol/L (22-29); CHLORIDE 101 mmol/L (98-107); CREATINE KINASE 115 IU/L (30-200); CREATININE, SERUM 1.01 mg/dL (0.72-1.25); EST GLOMERULAR FILTRATION RATE > 60 ML/MIN (60-); GLUCOSE 114 mg/dL (74-118); POTASSIUM 4.2 mmol/L (3.5-5.1); SODIUM 135 mmol/L (136-145)
== END 2020-05-07 | disposition home or self-care (01) ==
LOC: ER 22:43
DX: R50.9 Fever, unspecified (principal); B34.9 Viral infection, unspecified; R94.31 Abnormal electrocardiogram [ECG] [EKG]; I10 Essential (primary) hypertension; E11.9 Type 2 diabetes mellitus without complications; I25.10 Atherosclerotic heart disease of native coronary artery without angina pectoris; I25.2 Old myocardial infarction
CPT/HCPCS: 36415; 71045; 80053; 81001; 82550; 82553; 83605; 84484; 85025; 87040; 87086; 87400; 93005; 99284; J0696; J7030